=== PATIENT | female | born 1975 | race Caucasian/White ===

== ENCOUNTER → 2023-11-18 10:41 | Outpatient (REF) | payer MEDICARE, OTHER, SELFPAY ==
[2023-11-18 12:18] LABS: ALT (SGPT) 21 U/L (0-35); AST (SGOT) 36 U/L (14-36); Albumin 4.1 g/dl (3.5-5.0); Alkaline Phosphatase 146 U/L (38-126); Blood Urea Nitrogen 15 mg/dl (7-17); Calcium 9.5 mg/dl (8.4-10.2); Carbon Dioxide 25 mmol/L (22-30); Chloride 103 mmol/L (98-107); Glucose 166 mg/dl (70-99); Magnesium 1.9 mg/dl (1.6-2.3); Potassium 4.4 mmol/L (3.5-5.1); Sodium 140 mmol/L (135-145); Total Bilirubin 0.9 mg/dl (0.2-1.3); Total Protein 7.5 g/dl (6.3-8.2); eGFR > 60.00
[2023-11-20 18:16] LABS: Chromogranin A 111 ng/mL (0-187)
== END ==
LOC: REG 10:41
PROVIDERS: ATTENDING PHYSICIAN Internal Medicine Hematology & Oncology; FAMILY PHYSICIAN Physician Assistant Medical; REFERRING PHYSICIAN Nurse Practitioner Family
DX: C7A.00 Malignant carcinoid tumor of unspecified site (principal); C7A.092 Malignant carcinoid tumor of the stomach
CPT/HCPCS: 36415; 80053; 83735; 86316

== ENCOUNTER → 2023-12-27 10:44 | Outpatient (REF) | payer MEDICARE, OTHER, SELFPAY ==
[2023-12-27 11:01] VITALS: BP 121/58; BP_SYST 77
[2023-12-27 11:51] LABS: Glucose - Point of Care 230 mg/dl (70-99)
[2023-12-27 12:42] VITALS: BP 119/58; BP_SYST 72
[2023-12-27 13:43] LABS: Blood Urea Nitrogen 16 mg/dl (7-17); Calcium 10.2 mg/dl (8.4-10.2); Carbon Dioxide 24 mmol/L (22-30); Chloride 105 mmol/L (98-107); Glucose 192 mg/dl (70-99); Potassium 4.3 mmol/L (3.5-5.1); Sodium 137 mmol/L (135-145); eGFR > 60.00
[2023-12-27 14:16] LABS: AFP Male/Tumor Marker 10.6 ng/ml
== END ==
LOC: RADI 10:44
PROVIDERS: ATTENDING PHYSICIAN Internal Medicine Hematology & Oncology; FAMILY PHYSICIAN Physician Assistant Medical; REFERRING PHYSICIAN Internal Medicine Gastroenterology
DX: R59.0 Localized enlarged lymph nodes (principal); Z85.020 Personal history of malignant carcinoid tumor of stomach
CPT/HCPCS: 88173; 36415; 38505; 76942; 80048; 82105; 82962

== ENCOUNTER 2024-01-28 10:28 | Inpatient (IN) | payer OTHER, SELFPAY ==
[2024-01-26 18:56] VITALS: BP 114/56
[2024-01-26 19:43] LABS: % Basophils 0.7 % (0-2); % Eosinophils 1.2 % (0-6); % Immature Granulocytes 0.5 % (0-0.5); % Lymphocytes 39.5 % (20.5-51.1); % Monocytes 8.1 % (1.7-9.3); Absolute Basophils 0.1 10^3/uL (0-0.2); Absolute Eosinophils 0.1 10^3/uL (0-0.7); Absolute Immature Granulocytes 0.1 10^3/uL (0-0.05); Absolute Lymphocytes 4.1 10^3/uL (1.2-3.4); Absolute Monocytes 0.8 10^3/uL (0.1-0.6); Absolute Neutrophils 5.2 10^3/uL (1.4-6.5); Hematocrit 33.3 % (37.0-47.0); Hemoglobin 11.7 g/dL (12.0-16.0); Mean Corp Hgb Conc. 35.1 g/dL (33.0-37.0); Mean Corpuscular Hgb 32.7 pg (27.0-31.0); Mean Platelet Volume 9.6 fL (7.4-10.4); Nucleated Red Blood Cells % 0 %; Platelet Count 226 10^3/uL (130-400); Red Blood Cell Count 3.58 10^6/uL (4.20-5.40); Red Cell Dist. Width 13.8 % (11.5-14.5); White Blood Cell Count 10.4 10^3/uL (4.8-10.8)
[2024-01-26 19:57] LABS: HCG, Serum Qualitative Screen Negative
[2024-01-26 19:59] LABS: ALT (SGPT) 28 U/L (0-35); AST (SGOT) 39 U/L (14-36); Albumin 4.4 g/dl (3.5-5.0); Alkaline Phosphatase 163 U/L (38-126); Blood Urea Nitrogen 49 mg/dl (7-17); Calcium 9.2 mg/dl (8.4-10.2); Carbon Dioxide 21 mmol/L (22-30); Chloride 102 mmol/L (98-107); Glucose 119 mg/dl (70-99); Potassium 4.3 mmol/L (3.5-5.1); Sodium 139 mmol/L (135-145); Total Bilirubin 0.7 mg/dl (0.2-1.3); Total Protein 8.3 g/dl (6.3-8.2); eGFR 17.77
--- NOTE | 2024-01-26 20:14 | ED.GENMED ---
History of Present Illness
General
Chief Complaint: Extremity Pain (non-traumatic)
Source: patient
Exam Limitations: none
Time Seen by Provider: 01/26/24 19:56
Travel History
Have you had any contact with someone who has COVID-19?: No
Do you have any symptoms of coronavirus? Fever > 100 degrees, chills, cough, shortness of breath, sore throat, loss of taste or smell, muscle aches, or headache?: No
History of Present Illness
History of Present Illness:
See MDM
Past History
Past History
ED Past Medical History: GERD, HTN, Psychiatric (Anxiety, depression, OCD) and Other (sleep apneawears bipap)
ED Past Surgical History: Other (Surgery for the left eye muscle weakness)
Social History
Tobacco: Non-smoker
Alcohol: None
Drug: None
Personal: Single
Living: with family
Employment: Disabled
Family History
Family History: Other (No significant)
Phy Exam
Physical Exam
Physical Exam:
See MDM
Course
Orders/Labs/Results
Orders:
Orders
01/26/24 19:02
Test Result ONCE
01/26/24 19:09
CMP [Comprehensive Metabolic Panel] Urgent
Complete Blood Count/With Diff Urgent
HCG, Serum Qualitative Screen Urgent
01/26/24 20:13
Add On- LAB Urgent
Tests Added?: Magnesium level
NSS 1000mL Bolus over 1 hr 0.9% Sodium Chloride 1000 ml [Nss] 1,000 ml IV BOLUS
Abnormal Lab Results
01/26/24
19:09
RBC 3.58 L 10^6/uL
(4.20-5.40)
Hgb 11.7 L g/dL
(12.0-16.0)
Hct 33.3 L %
(37.0-47.0)
MCH 32.7 H pg
(27.0-31.0)
Abs Immat Gran (auto) 0.1 H 10^3/uL
(0-0.05)
Absolute Lymphs (auto) 4.1 H 10^3/uL
(1.2-3.4)
Absolute Monos (auto) 0.8 H 10^3/uL
(0.1-0.6)
Carbon Dioxide 21 L mmol/L
(22-30)
BUN 49 H mg/dl
(7-17)
Creatinine 3.1 H mg/dL
(0.6-1.0)
Glucose 119 H mg/dl
(70-99)
AST 39 H U/L
(14-36)
Alkaline Phosphatase 163 H U/L
(38-126)
Total Protein 8.3 H g/dl
(6.3-8.2)
01/26/24 19:09
01/26/24 19:09
Vital Signs
Initial and Last Documented VS:
Initial Vital Signs
Temp Pulse Resp BP Pulse Ox
98.2 F 74 22 114/56 100
01/26/24 18:56 01/26/24 18:56 01/26/24 18:56 01/26/24 18:56 01/26/24 18:56
Last Documented Vital Signs
Temp Pulse Resp BP Pulse Ox
98.2 F 78 22 114/56 98
01/26/24 18:56 01/26/24 19:57 01/26/24 18:56 01/26/24 18:56 01/26/24 19:57
MDM/Problems Addressed
Differential Diagnosis Includes:
HPI and MDM Narrative:
49-year-old female presenting for evaluation of bilateral foot tingling and numbness. Patient believes this all started today. [facility]. She has cognitive impairment and multiple medical comorbidities. Her mother is at
bedside. Patient is unsure if symptoms are improving. On exam, she does have mild decrease sensation to both feet. Patellar reflexes are intact. She does appear mildly dry to me. She does admit to not drinking much water
I had a long discussion with patient and mother in regards to differential diagnosis. We discussed metabolic abnormalities versus early Guillain-Thomas� versus diabetic neuropathy versus sleeping in recliner's
Physical exam
General: Well appearing and non-toxic
HEENT: protecting airway. Dry mucous membranes
Neck: appears supple
CV: No evidence of cyanosis
Resp: No accessory muscle use
Abd: Non-distended
Extremities: Mild sensory deficit to both feet. Pulses grossly intact. Muscle strength intact
Neuro: alert. Patellar reflexes +2
Psych: Normal affect
Skin: Intact
Problems Addressed including Acute and Chronic Conditions affecting care:
1. Bilateral foot paresthesias
Acuity: acute
Prognosis: stable
Details: Appears to be the source of her frequent falls. Very mild decrease sensation from ankles down. Distal pulses intact. Range of motion
2. Acute kidney injury
Acuity: acute
Prognosis: stable
Details: Likely in setting of dehydration. Will give IV fluids
Updates
Given the MARNIE which is likely prerenal or medication related, will give IV fluids and admit
Differential Diagnosis (but not limited to): Paresthesias, metabolic abnormalities, early Guillain-Thomas� syndrome, diabetic neuropathy
Testing considered: Renal ultrasound
Drug therapy (if applicable): OTC meds, please see d/c instruction regarding Rx drugs
Amount and/or Complexity of Data Reviewed
Clinical info obtained from: Patient and mother
External data reviewed: N/A
Labs I independently reviewed (but not limited to): Elevated creatinine
Radiology: N/A
Pulse Ox: not hypoxic
EKG independently reviewed: N/A
Cruise Agent: N/A
Critical Care: N/A
Risk of Complication:
Social Determinants of health: Good social support
Discussed with other providers: Hospitalist
Escalation of Care includes Admit/Obs: Given the elevated creatinine with active paresthesias, will give IV fluids and admit
Occasional wrong word or 'sound a like' substitutions may have occurred due to the inherent limitations of voice recognition software. Read the chart carefully and recognize, using context, where substitutions have occurred.
*Critical Care Note
Total Time (30-74mins, 75-104mins- exclusive of procedures): Not Applicable
ED Attending Note
-
Portions of this chart may have been created with voice recognition software.� Occasional wrong word or��sound alike� substitutions may have occurred due to the inherent limitations of voice recognition software.
Discharge Plan
Departure
Patient Disposition: Admit
Date of Disposition: 01/26/24
Time of Disposition: 20:25
Admit to: Med/Surg
Presentation/result/management discussed w/ accepting MD/DO: Hospitalist
Discharge Problem:
MARNIE (acute kidney injury), Paresthesia of both feet
Prescriptions:
No Action
fluoxetine 40 mg Capsule
40 mg PO DAILY
atenolol 100 mg Tablet
100 mg PO DAILY
famotidine 40 mg Tablet
40 mg PO DAILY
clonazepam [Klonopin] 1 mg Tablet
1 mg PO TID
omeprazole 40 mg Capsule,Delayed Release(Dr/Ec)
40 mg PO DAILY
quetiapine 100 mg Tablet
100 mg PO HS
ferrous sulfate 325 mg (65 mg iron) Tablet
325 mg PO BID
gabapentin 300 mg Capsule
300 mg PO BID
olmesartan 40 mg Tablet
40 mg PO DAILY
rosuvastatin 5 mg Tablet
5 mg PO DAILY
fenofibrate nanocrystallized 145 mg Tablet
145 mg PO DAILY
cholecalciferol (vitamin D3) [Vitamin D3] 50 mcg (2,000 unit) Tablet
50 mcg PO DAILY
insulin aspart U-100 [Novolog FlexPen U-100 Insulin] 100 unit/mL (3 mL) Insulin Pen
20 unit SC TID
insulin glargine [Lantus Solostar U-100 Insulin] 100 unit/mL (3 mL) Insulin Pen
40 unit SC HS
ibuprofen [Advil] 200 mg Tablet
400 mg PO Q8H PRN (Reason: pain)
hydroxyzine pamoate 25 mg Capsule
25 mg PO BID PRN (Reason: anxiety)
acetaminophen [Tylenol] 325 mg Tablet
325 mg PO ONCE PRN (Reason: pain)
Icy Hot Cream
1 applic TOPICAL DAILY PRN (Reason: pain)
Interventions
Interventions:
*Risk Screen - Suicide Last Done: 01/26/24 18:56
*General Assessment Last Done: 01/26/24 19:27
*Neglect/Abuse Screening Last Done: 01/26/24 18:56
*ED COVID-19 Vaccine History Last Done: 01/26/24 19:27
ED-Skin Assessment Last Done: 01/26/24 19:27
ED-Musculoskeletal Assessment Last Done: 01/26/24 19:27
Discharge Date and Time
Print Language: UKRAINIAN
[2024-01-26 20:21] VITALS: BP 115/58
[2024-01-26] MEDS: NSS 1000 IV ×2 (20:21→22:56)
[2024-01-26 20:31] LABS: Magnesium 2.4 mg/dl (1.6-2.3)
--- NOTE | 2024-01-26 21:23 | HPS.HSE ---
Family Physician
-
Family Physician: Tre Ziegler
Chief Complaint
-
Bilateral lower extremity numbness
History of Present Illness
This is a 49-year-old female with past medical history significant for neuroendocrine tumor status postresection and chemo with recent evidence of recurrence of metastatic disease, history of diabetes on insulin, YU, obesity, hypertension and
hyperlipidemia as well as LESLY who presents to the emergency department with acute onset of bilateral lower extremity numbness upon arousal today.
Patient apparently had been in usual state of health up until arousable today. She noted numbness in her feet bilaterally. She thought that this will improve over time as it had previously but Saturday day the symptoms persisted. He had difficulty
walking and actually had multiple falls during the day. Denies hitting her head. Patient denies any pain tingling or weakness. She does report that legs feels a little bit heavy. She denies any rash. She denies any changes to her medications.
On arrival in the emergency department patient is noted to have MARNIE with a creatinine going from 0.7-3.1 over episode of about 1 month. Patient reports that in the past she was on NSAIDs but this has been discontinued and adamantly denies taking
NSAID any NSAIDs. She has not had any exposures to contrast recently. Denies any other medication changes. Specifically noted that she has been urinating normally denies any difficulty urinating, abdominal distention or abdominal pain, flank pain
nausea or vomiting. She reports normal p.o. intake. Denies any significant sneezing diarrhea. Patient does have a history of loose bowel movements and has been on Imodium as needed but recently denies significant stool losses. She denies any new
rash.
In the ED the patient was afebrile, hemodynamically stable with a blood pressure 115/58 pulse of 78 oxygen saturation was 90% on room air. CBC was unremarkable with a white count of 10 hemoglobin of 11 and platelet count of 226. Chemistries were
mostly unremarkable except for a BUN of 49 and a creatinine of 3.1. LFTs unchanged.
Medical History
Past Medical History
Past Medical History: Reports Cancer (neuroendocrine tumor), HTN and IDDM
Additional Past Medical History:
LESLY
YU
Past Surgical History: Reports None
Social History
Tobacco: Non-smoker
Alcohol: None
Drug: None
Personal: Single
Living: Assisted Living
Employment: Not Employed
Family History
Family History: Not pertinent
Allergies / Home Medications
Allergies reflects when Allergies were last updated in [facility].
Home Medications with original date entered in [facility]
Allergy/Medication List:
Allergies
Allergy/AdvReac Type Severity Reaction Status Date / Time
Milk Containing Products Allergy Unknown Verified 12/27/23 10:57
(Dairy)
[Milk Containing Products]
prednisone Allergy Unknown Verified 01/26/24 19:02
Home Medications
acetaminophen 325 mg tablet (Tylenol) 325 mg PO ONCE PRN pain 11/22/22
atenolol 100 mg tablet 100 mg PO DAILY 11/22/22
cholecalciferol (vitamin D3) 50 mcg (2,000 unit) tablet (Vitamin D3) 50 mcg PO DAILY 11/22/22
clonazepam 1 mg tablet (Klonopin) 1 mg PO TID 11/22/22
famotidine 40 mg tablet 40 mg PO DAILY 11/22/22
fenofibrate nanocrystallized 145 mg tablet 145 mg PO DAILY 11/22/22
ferrous sulfate 325 mg (65 mg iron) tablet 325 mg PO BID 11/22/22
fluoxetine 40 mg capsule 40 mg PO DAILY 11/22/22
gabapentin 300 mg capsule 300 mg PO BID 11/22/22
hydroxyzine pamoate 25 mg capsule 25 mg PO BID PRN anxiety 11/22/22
ibuprofen 200 mg tablet (Advil) 400 mg PO Q8H PRN pain 11/22/22
insulin aspart U-100 100 unit/mL (3 mL) subcutaneous pen (Novolog FlexPen U-100 Insulin aspart) 20 unit SC TID 11/22/22
insulin glargine 100 unit/mL (3 mL) subcutaneous pen (Lantus Solostar U-100 Insulin) 40 unit SC HS 11/22/22
methyl salicylate-menthol topical cream 1 applic topical DAILY PRN pain 11/22/22
olmesartan 40 mg tablet 40 mg PO DAILY 11/22/22
omeprazole 40 mg capsule,delayed release 40 mg PO DAILY 11/22/22
quetiapine 100 mg tablet 100 mg PO HS 11/22/22
rosuvastatin 5 mg tablet 5 mg PO DAILY 11/22/22
Review of Systems
-
History Source: Patient and Family
Constitutional: Reports No Symptoms
EENT: Reports No Symptoms
Respiratory: Reports No Symptoms
Cardiac: Reports No Symptoms
Abdomen/GI: Reports No Symptoms
: Reports No Symptoms
Musculoskeletal: Reports No Symptoms
Skin: Reports No Symptoms
Neurological: Reports Numbness
Endocrine: Reports No Symptoms
Hematologic/Lymphatic: Reports No Symptoms
Psych: Reports No Symptoms
Physical Exam
Vital Signs
Vital Signs
Temp Pulse Resp BP Pulse Ox
98.2 F 78 22 115/58 98
01/26/24 18:56 01/26/24 19:57 01/26/24 18:56 01/26/24 20:21 01/26/24 19:57
Physical Exam
General: Well Developed, No Apparent Distress and Comfortable
HEENT: NormoCephalic, Moist mucous membranes, Atraumatic, PERRLA and Neck Nontender
Respiratory: Clear
Cardiac: S1/S2 and Regular Rhythm
Breast: Deferred by me
GI: Soft, Non Tender and Normal Bowel Sounds
Genito-urinary: Deferred by me
Musculoskeletal: No Clubbing, No Cyanosis and No Edema
Skin: Warm and Rash (facial rash - chronic and unchanged per patient. )
Neuro: AO x 3
Hematologic/Lymphatic: No Lymphadenopathy
Psych: Calm
Laboratory Results
-
01/26/24 19:09
01/26/24 19:09
Laboratory Results
Total Bilirubin 0.7 mg/dl (0.2-1.3) 01/26/24 19:09
AST 39 U/L (14-36) H 01/26/24 19:09
ALT 28 U/L (0-35) 01/26/24 19:09
Alkaline Phosphatase 163 U/L (38-126) H 01/26/24 19:09
Data Reviewed
-
Lab Data: Labs Reviewed by me
Old Records: Reviewed
Impression/Plan
-
IMPRESSION:
PLAN:
1. MARNIE - Unclear etiology of MARNIE. Cr 3.1 from baseline of 0.7 last month. Denies NSAIDs. No other exposures. No infectious process. No rash. Has been hemodynamically stable. No history suggestive of significant dehydration. No obvious
obstruction patient however unable to provide urine while in ED. B/S = 650 ml. Urinary catheter inserted with 400 ml removed immediately c/w possible retention and hydro
- admit to [facility]
- Kidney/bladder us in am
- u/a, urine protein and lytes
- cpk, serologies (MAULIK, C3/C4, ESR, CRP,) to start
- strict i/os
- 1 L NS in ED, monitor afterwards.
- holding ARB, renal dose meds
- nephrology consultation
2. Bilateral Feet numbness - Acute onset of numbness on the soles of the feet. No weakness. No other focal deficit. No rash. Onset atypical for diabetic neuropathy. Possibly paraneuoplastic vs inflammatory polyneuropathy. No back pain.
- check b12, tsh, RF and above serologies
- neurology consult
3. DM II
- lantus 40 hs
- aspart 15 tid ac
- moderate sliding scale
4. LESLY
- oxygen prn hs
DVT PPX - heparin sq
Full Code
[2024-01-26 22:31] VITALS: BP 140/66
[2024-01-26 22:32] LABS: Urine Albumin Negative (Neg - Trace); Urine Bilirubin Negative (Negative); Urine Character Clear (Clear); Urine Color Yellow; Urine Glucose Trace (Negative); Urine Ketone Negative (Negative); Urine Leukocyte Negative (Negative); Urine Nitrite Negative (Negative); Urine Occult Blood Negative (Negative); Urine Specific Gravity 1.015 (<1.030); Urine Urobilinogen Negative (Neg - 1+)
[2024-01-26 22:50] VITALS: BP 145/72; BMI 34.1
[2024-01-26] MEDS: SEROQUEL 100 MG PO (22:56)
[2024-01-26] MEDS: KLONOPIN 1 MG PO (22:56)
[2024-01-26 23:00] VITALS: BP 145/72
--- NOTE | 2024-01-26 23:00 | PTCARENOTE ---
pt arrived from ed, pulled over from stretcher. aaox3, VSS, janeth placed in ED. see MAR and assessment for further details. call carrillo within reach.
[2024-01-26 23:06] LABS: Glucose - Point of Care 198 mg/dl (70-99)
[2024-01-26] MEDS: HEPARIN 5000 UNITS SC (23:11)
[2024-01-26 23:14] LABS: Protein/creatinine Ratio 0.3; Urine Protein 29 mg/dl; Urine Sodium 75 mmol/L (30-90)
[2024-01-27] MEDS: TUMS 2 TABLET PO (02:31)
[2024-01-27] MEDS: TYLENOL 650 MG PO ×3 (04:39→17:22)
[2024-01-27 06:35] LABS: Hematocrit 35.7 % (37.0-47.0); Hemoglobin 12.4 g/dL (12.0-16.0); Mean Corp Hgb Conc. 34.7 g/dL (33.0-37.0); Mean Corpuscular Hgb 32.8 pg (27.0-31.0); Mean Corpuscular Volume 94.4 fL (81.0-99.0); Mean Platelet Volume 9.8 fL (7.4-10.4); Platelet Count 193 10^3/uL (130-400); Red Blood Cell Count 3.78 10^6/uL (4.20-5.40); Red Cell Dist. Width 13.4 % (11.5-14.5); White Blood Cell Count 8.3 10^3/uL (4.8-10.8)
[2024-01-27 06:48] LABS: Blood Urea Nitrogen 43 mg/dl (7-17); Calcium 8.9 mg/dl (8.4-10.2); Carbon Dioxide 17 mmol/L (22-30); Chloride 106 mmol/L (98-107); Estimated Creatinine Clearance 35 ml/min; Glucose 167 mg/dl (70-99); Sodium 139 mmol/L (135-145); eGFR 26.81
[2024-01-27 06:55] LABS: Complement C3 159 mg/dl (88-165)
[2024-01-27 07:15] VITALS: BP 141/63
[2024-01-27 07:49] LABS: Glucose - Point of Care 207 mg/dl (70-99)
--- NOTE | 2024-01-27 08:03 | CON.NEURO4 ---
Addendum entered and electronically signed by Chuy Alvarez MD 01/27/24 13:26:
I saw and evaluate the patient reviewed note by Margaret Arambula agree the findings the following comments:
49-year-old woman with a past no history of obesity, diabetes, obstructive sleep apnea, neuroendocrine tumor with metastases presenting the hospital with bilateral foot paresthesia and walking difficulty with a couple falls. She was also found to
have an MARNIE with creatinine to maximum of 3.1, and recently had fever to 101.3.
Patient recollects that she has had this for around 6 years, most recent hemoglobin A1c was 7.4, highest was 11.5 in January 2021. She does recollect having some degree of kidney abnormalities but does not think that she has had retinal abnormalities
from diabetes.
She does recollect that she has had some degree of paresthesia of the feet in the past not sure how far that this goes. She denies any paresthesia in the saddle region no back pain or neck and no radiating pain from the back to the legs. No recent
trauma to the back or neck before more recent falls.
Neurologic examination shows psychomotor slowing and difficulty with complex aspects of history, no aphasia no neglect, cranial nerves II through XII normal
Motor examination shows normal bulk and tone
Arm flexion 5/5 bilateral
Hip flexion 5/5 bilaterally hip abduction/adduction ankle dorsiflexion/plantarflexion is 5/5 bilaterally and toe extension 5/5 bilaterally.
Mildly diminished to vibratory sense distally in the feet normal to pinprick and light touch
Absent Achilles reflexes present patella biceps triceps brachioradialis
Assessment:
I suspect patient has worsening of chronic diabetic peripheral neuropathy leading to more noticeable paresthesia and falls due to metabolic derangements of MARNIE and possible infection given fever to 101 today. Urinary retention is new and patient
does have a history of neuroendocrine cancer which would broaden our differential diagnosis.
She is not showing signs or symptoms highly suggestive of spinal cord dysfunction, no weakness in the lower extremities no radicular pain, no saddle anesthesia.
Clinical context of likely a baseline diabetic peripheral neuropathy, acute illness with metabolic derangements along with presence of patellar and upper extremity reflexes I feel makes Guillain-Thomas� unlikely.
Recommendations
-Follow clinical course and if she shows any worsening ascending paresthesias or weakness can consider further workup
-Check MRI of the lumbar and thoracic spine without contrast given history of malignancy
-Do not feel the EMG would be helpful at this time
-Check for reversible causes of peripheral neuropathy vitamin B12 TSH, hemoglobin A1c
-Workup fever
Original Note:
Consultation - Neurology 4
-
CONSULTING PHYSICIAN: Raúl Alvarez MD
REFERRING PHYSICIAN: Hospitalists/Dr. Merchant
DICTATED BY: MELI Cole
DATE/TIME OF REQUEST: 01/26/24
DATE/TIME OF CONSULTATION: 01/27/24
Reason for Consultation: B/L foot numbness, urinary retention
History of Present Illness:
This is a 49-year-old female who has presented to the hospital on 01/26/24 with report of bilateral foot numbness and frequent falls. Patient reports that she woke up in the morning yesterday (01/26/24) and her feet felt like 'Jello.' She proceeded to
have two falls throughout the day due to not being able to feel her feet, prompting her to be sent to the ER for evaluation. Creatinine on arrival 3.1, GFR 17, CRP 83.7, ESR 63, alk phos 163. Patient was unable to urinate and bladder scan
demonstrated 650ml, Fowler catheter was inserted. This morning (01/27/24) patient has a temperature of 101.3 oral. Patient reports generally not feeling well and that she is nervous. She denies any headache, dizziness, vision changes, speech/swallow
difficultly, weakness, nausea, chest pain, palpitations, and shortness of breath. Her feet still feel numb. She denies any back or neck pain. She reports having intermittent diarrhea for several months, she was incontinent of stool yesterday. She
reports also having a pnuemonia vaccine and was treated for a sinus infection about one week ago. She reports having mild intermittent tingling in her feet in the past but never to this extent.
Past Medical History: Neuroendocrine tumor s/p rxn and chemo with recent metastatic disease, NIDDM requiring insulin, HTN, HLD, YU, LESLY (cpap), pulmonary nodules, GERD, developmental delay, anxiety, depression obesity, iron deficiency anemia,
vitamin D deficiency
Surgical History: Liver biopsy, eye muscle surgery, oral surgery
Family History: Mother- CVA in her 70's
Social History: Denies tobacco, alcohol, and illicit drug use.
Allergies: Mild, prednisone.
Home Medications: See below.
Review of Symptoms:
Patient denies any fever, headache, chest pain, shortness of breath, GI or symptoms.
�Per the HPI.�All systems are reviewed negative except above.
Physical Exam:
The patient is febrile, face is flushed, skin is hot to touch. Breathing is unlabored, abdomen is nondistended, no edema, fowler catheter in place.
Neurologic Examination:
The patient is awake, alert and oriented x 3. She is able to follow commands and answer questions appropriately. There is no aphasia or dysarthria but verbal responses are very delayed. On cranial nerve assessment, pupils are 3 mm bilateral, round
and reactive to light and accommodation. Visual rios are full. Extraocular movements are intact. Facial sensations are intact and bilaterally symmetrical, there is no facial asymmetry. Hearing is intact bilaterally to normal conversation volume.
Tongue palate and uvula are midline. Sternocleidomastoid strengths are full bilaterally. Motor strengths are 5-/5 bilateral upper and lower extremities on medical research [place] scale. B/L plantar/dorsiflexion and knee adduction/abduction 5/5.
There is no drift or involuntary movement noted. Deep tendon reflexes are 1+ bilateral upper and bilateral patellar, absent bilateral Achilles, and Babinski is absent bilaterally. Sensations of touch and pain are mildly reduced in bilateral feet
only. Temperature and vibration are intact and bilaterally symmetrical. Coordination is intact by finger to nose bilaterally.
Lab Results: See below.
Neuro Imaging: None.
Differentials for the patient's presentation include:
1. Likely an exacerbation of chronic neuropathy symptoms in the setting of long-standing diabetes, MARNIE, and infection.
2. Guillain-[place] syndrome possible but less likely given absence of pain and saddle paresthesia.
3. Need to rule-out lumbar spinal cord abnormality producing symptoms.
Patient has the following risk factors for their symptoms: NIDDM requiring insulin, infection, MARNIE, cancer
Recommendations:
-Urgent lumbar spine MRI noncontrast pending.
-Infectious workup/treatment per primary team.
-Consider EMG in 1-2 weeks especially if symptoms progress.
-Goal normoglycemia, hbA1c is 7.4.
-B12 level is low at 345. Initiate cyanocobalamin 1000mcg daily.
-Neurological checks per unit guidelines.
-DVT prophylaxis.
-Will follow.
Discussed patient care with: Dr. Alvarez, the patient
Vital Signs and Labs
-
Vital Signs and Labs:
Vital Signs
Temp Pulse Resp BP Pulse Ox
99.5 F 91 18 120/58 93
01/27/24 12:25 01/27/24 12:25 01/27/24 12:25 01/27/24 12:25 01/27/24 12:25
Lab Results
01/27/24 05:19
01/27/24 05:20
Sodium 139 mmol/L (135-145) 01/27/24 05:20
Potassium 4.0 mmol/L (3.5-5.1) 01/27/24 05:20
BUN 43 mg/dl (7-17) H 01/27/24 05:20
Glucose 167 mg/dl (70-99) H 01/27/24 05:20
Calcium 8.9 mg/dl (8.4-10.2) 01/27/24 05:20
Vitamin B12 345 pg/ml (239-931) 01/27/24 05:20
Medications
-
Active Medications
Generic Name Dose Route Start Last Admin
Trade Name Freq PRN Reason Stop Dose Admin
Acetaminophen 650 mg 01/26/24 22:36 01/27/24 10:02
Acetaminophen 325 Mg Tablet PO 02/23/24 22:35 650 mg
Q4HPRN PRN Administration
mild pain/ELENA/temp> 100.4F
Atenolol 100 mg 01/27/24 08:00 01/27/24 10:01
Atenolol 50 Mg Tablet PO 02/24/24 07:59 100 mg
DAILY ALURA Administration
Bisacodyl 10 mg 01/26/24 22:36
Bisacodyl 10 Mg Rectal Suppository RECTAL 02/23/24 22:35
[id number] PRN
constipation
Calcium Carbonate 2 tablet 01/27/24 02:23 01/27/24 02:31
Calcium Carbonate 500 Mg (Regular-Strength) Chew Tablet PO 02/24/24 02:22 2 tablet
Q4HPRN PRN Administration
indigestion
Ceftriaxone Sodium 1,000 mg 01/27/24 12:00 01/27/24 12:37
Ceftriaxone 1000 Mg / 10 Ml Vial IV 1,000 mg
Q24H LAURA Administration
Clonazepam 1 mg 01/26/24 22:00 01/27/24 10:01
Clonazepam 1 Mg Tablet PO 02/23/24 21:59 1 mg
TID LAURA Administration
Dextrose 12.5 grams 01/26/24 23:00
Dextrose 50% (0.5 Grams/Ml) 50 Ml Syringe IV 02/23/24 22:59
[id number] PRN
hypoglycemia
Protocol
Famotidine 20 mg 01/27/24 08:00 01/27/24 10:25
Famotidine 20 Mg Tablet PO 02/24/24 07:59 20 mg
Q48H LAURA Administration
Ferrous Sulfate 325 mg 01/27/24 08:00 01/27/24 10:01
Ferrous Sulfate 325 Mg Tablet PO 02/24/24 07:59 325 mg
BID LAURA Administration
Fluoxetine HCl 40 mg 01/27/24 08:00 01/27/24 10:42
Fluoxetine 20 Mg Capsule PO 02/24/24 07:59 40 mg
DAILY LAURA Administration
Gabapentin 100 mg 01/27/24 08:00 01/27/24 10:01
Gabapentin 100 Mg Capsule PO 02/24/24 07:59 100 mg
DAILY LAURA Administration
Glucagon 1 mg 01/26/24 23:00
Glucagon 1 Mg Vial IM 02/23/24 22:59
PRN PRN
hypoglycemia - no IV access
Protocol
Heparin Sodium 5,000 units 01/27/24 00:00 01/27/24 10:02
Heparin 5,000 Units/Ml 1 Ml Vial SC 02/24/24 00:00 5,000 units
Q8 LAURA Administration
Sodium Chloride 1,000 mls @ 100 mls/hr 01/26/24 22:36 01/27/24 10:02
Nss IV 1,000 mls
.Q10H LAURA Administration
Insulin Aspart 0 units 01/27/24 07:30 01/27/24 12:31
Insulin Aspart Moderate Resistance 300 Units/3 Ml Pen.Injctr SC 02/24/24 07:29 Not Given
AC LAURA
Protocol
Ondansetron HCl 4 mg 01/26/24 22:36
Ondansetron 4 Mg/2 Ml Vial IV 02/23/24 22:35
Q6HPRN PRN
nausea and vomiting
Polyethylene Glycol 17 grams 01/26/24 22:36
Polyethylene Glycol Powder 17 Grams Packet PO 02/23/24 22:35
DAILYPRN PRN
constipation
Quetiapine Fumarate 100 mg 01/26/24 22:00 01/26/24 22:56
Quetiapine 100 Mg Tablet PO 02/23/24 21:59 100 mg
HS LAURA Administration
Rosuvastatin Calcium 5 mg 01/27/24 08:00 01/27/24 10:01
Rosuvastatin (Crestor) 5 Mg Tablet PO 02/24/24 07:59 5 mg
DAILY LAURA Administration
Senna/Docusate Sodium 1 tablet 01/26/24 22:36
Docusate W/Senna (Destini-Colace) Tablet PO 02/23/24 22:35
BIDPRN PRN
constipation
Sodium Chloride 0 flush 01/26/24 22:00
Sodium Chloride 0.9% (Flush) Syringe IV 02/23/24 21:59
PER PROTOCOL LAURA
Home Medications
�Medication �Instructions �Recorded
acetaminophen 325 mg tablet 325 mg PO ONCE PRN pain 11/22/22
(Tylenol)
atenolol 100 mg tablet 100 mg PO DAILY 11/22/22
cholecalciferol (vitamin D3) 50 50 mcg PO DAILY 11/22/22
mcg (2,000 unit) tablet (Vitamin
D3)
clonazepam 1 mg tablet (Klonopin) 1 mg PO TID 11/22/22
famotidine 40 mg tablet 40 mg PO DAILY 11/22/22
fenofibrate nanocrystallized 145 145 mg PO DAILY 11/22/22
mg tablet
ferrous sulfate 325 mg (65 mg 325 mg PO BID 11/22/22
iron) tablet
fluoxetine 40 mg capsule 40 mg PO DAILY 11/22/22
gabapentin 300 mg capsule 300 mg PO BID 11/22/22
hydroxyzine pamoate 25 mg capsule 25 mg PO BID PRN anxiety 11/22/22
ibuprofen 200 mg tablet (Advil) 400 mg PO Q8H PRN pain 11/22/22
insulin aspart U-100 100 unit/mL 20 unit SC TID 11/22/22
(3 mL) subcutaneous pen (Novolog
FlexPen U-100 Insulin aspart)
insulin glargine 100 unit/mL (3 40 unit SC HS 11/22/22
mL) subcutaneous pen (Lantus
Solostar U-100 Insulin)
methyl salicylate-menthol topical 1 applic topical DAILY PRN pain 11/22/22
cream
olmesartan 40 mg tablet 40 mg PO DAILY 11/22/22
omeprazole 40 mg capsule,delayed 40 mg PO DAILY 11/22/22
release
quetiapine 100 mg tablet 100 mg PO HS 11/22/22
rosuvastatin 5 mg tablet 5 mg PO DAILY 11/22/22
[2024-01-27 08:07] LABS: Creatine Phosphokinase 138 U/L (30-135)
[2024-01-27 08:20] LABS: Erythrocyte Sed Rate 63 mm/hour (0-20)
[2024-01-27] MEDS: FEOSOL 325 MG PO ×2 (10:01→19:55)
[2024-01-27] MEDS: TENORMIN 100 MG PO (10:01)
[2024-01-27] MEDS: NEURONTIN 100 MG PO (10:01)
[2024-01-27] MEDS: KLONOPIN 1 MG PO ×3 (10:01→21:27)
[2024-01-27] MEDS: CRESTOR 5 MG PO (10:01)
[2024-01-27] MEDS: NSS 1000 IV ×2 (10:02→18:36)
[2024-01-27] MEDS: HEPARIN 5000 UNITS SC ×3 (10:02→23:09)
[2024-01-27] MEDS: NOVOLOG FLEXPEN-MODERATE RESISTANCE 3 UNITS SC (10:04)
[2024-01-27] MEDS: PEPCID 20 MG PO (10:25)
[2024-01-27] MEDS: PROZAC 40 MG PO (10:42)
--- NOTE | 2024-01-27 11:23 | W.CON.NEPH ---
Consultation
-
Date/Time Consultation Requested: 01/27/2024 7:00 AM
Date/Time Consultation Performed: 01/27/2024 1130
Requesting Provider: Kanu
Performing Provider: Dr. Russell
Reason for Consultation: MARNIE
Medical History
-
Chief Complaint: Acute kidney injury
History of Present Illness:
The patient is a 49-year-old female with a past medical history of diabetes maintained on insulin. She also has a history of dyslipidemia maintained on statin therapy. The patient has a history of hypertension maintained on olmesartan and
atenolol. She has a past medical history significant for neuroendocrine tumor status postresection and chemo with recent evidence of recurrence of metastatic disease. She has YU, obesity, hypertension and hyperlipidemia as well as LESLY who presents
to the emergency department with acute onset of bilateral lower extremity numbness upon arousal today.
Patient apparently had been in usual state of health up until arousable today. She noted numbness in her feet bilaterally. She thought that this will improve over time as it had previously but Saturday day the symptoms persisted. She had difficulty
walking and actually had multiple falls during the day. Denies hitting her head. Patient denies any pain tingling or weakness. She does report that legs feels a little bit heavy. She denies any rash. She denies any changes to her medications.
On arrival in the emergency department patient was noted to have MARNIE with a creatinine going from 0.7-3.1 over episode of about 1 month. Patient reports that in the past she was on NSAIDs but this has been discontinued and adamantly denies taking
any NSAIDs. She has not had any exposures to contrast recently. Denies any other medication changes. Specifically noted that she has been urinating normally denies any difficulty urinating, abdominal distention or abdominal pain, flank pain
nausea or vomiting. She reports normal p.o. intake. Denies any significant sneezing diarrhea. Patient does have a history of loose bowel movements and has been on Imodium as needed but recently denies significant stool losses. She denies any new
rash.
In the ED the patient was afebrile, hemodynamically stable with a blood pressure 115/58 pulse of 78 oxygen saturation was 90% on room air. CBC was unremarkable with a white count of 10 hemoglobin of 11 and platelet count of 226. Chemistries were
mostly unremarkable except for a BUN of 49 and a creatinine of 3.1. LFTs unchanged. Nephrology was consulted for acute kidney
Past Medical History
(Metastatic neuroendocrine tumor), HTN and IDDM
Muscular atonia
Anxiety
LESLY
YU
Social History
Tobacco: Non-Smoker
Alcohol: None
Family History
No chronic kidney disease
Allergies / Home Medications
Allergy/AdvReac Type Severity Reaction Status Date / Time
Milk Containing Products Allergy Unknown Verified 12/27/23 10:57
(Dairy)
[Milk Containing Products]
prednisone Allergy Unknown Verified 01/26/24 19:02
�Medication �Instructions �Recorded �Confirmed �Type
acetaminophen 325 mg tablet 325 mg PO ONCE PRN pain 11/22/22 12/27/23 History
(Tylenol)
atenolol 100 mg tablet 100 mg PO DAILY 11/22/22 12/27/23 History
cholecalciferol (vitamin D3) 50 50 mcg PO DAILY 11/22/22 12/27/23 History
mcg (2,000 unit) tablet (Vitamin
D3)
clonazepam 1 mg tablet (Klonopin) 1 mg PO TID 11/22/22 12/27/23 History
famotidine 40 mg tablet 40 mg PO DAILY 11/22/22 12/27/23 History
fenofibrate nanocrystallized 145 145 mg PO DAILY 11/22/22 12/27/23 History
mg tablet
ferrous sulfate 325 mg (65 mg 325 mg PO BID 11/22/22 12/27/23 History
iron) tablet
fluoxetine 40 mg capsule 40 mg PO DAILY 11/22/22 12/27/23 History
gabapentin 300 mg capsule 300 mg PO BID 11/22/22 12/27/23 History
hydroxyzine pamoate 25 mg capsule 25 mg PO BID PRN anxiety 11/22/22 12/27/23 History
ibuprofen 200 mg tablet (Advil) 400 mg PO Q8H PRN pain 11/22/22 12/27/23 History
insulin aspart U-100 100 unit/mL 20 unit SC TID 11/22/22 12/27/23 History
(3 mL) subcutaneous pen (Novolog
FlexPen U-100 Insulin aspart)
insulin glargine 100 unit/mL (3 40 unit SC HS 11/22/22 12/27/23 History
mL) subcutaneous pen (Lantus
Solostar U-100 Insulin)
methyl salicylate-menthol topical 1 applic topical DAILY PRN pain 11/22/22 12/27/23 History
cream
olmesartan 40 mg tablet 40 mg PO DAILY 11/22/22 12/27/23 History
omeprazole 40 mg capsule,delayed 40 mg PO DAILY 11/22/22 12/27/23 History
release
quetiapine 100 mg tablet 100 mg PO HS 11/22/22 12/27/23 History
rosuvastatin 5 mg tablet 5 mg PO DAILY 11/22/22 12/27/23 History
Review of Systems
-
History Source: Patient and Family
All other systems: Negative unless noted
Constitutional: Fever and Fatigue
EENT: No Symptoms
Respiratory: No Symptoms
Cardiac: No Symptoms
Abdomen/GI: No Symptoms
: Difficulty Voiding (Rivas placed on floor)
Musculoskeletal: Other (Chronic muscle)
Skin: No Symptoms
Neurological: Numbness (Of lower extremity)
Endocrine: No Symptoms
Hematologic/Lymphatic: No Symptoms
Physical Exam
Vital Signs
Vital Signs
Temp Pulse Resp BP Pulse Ox
101.3 F H 114 26 141/63 93
01/27/24 07:15 01/27/24 07:15 01/27/24 07:15 01/27/24 07:15 01/27/24 07:15
Lab Results
WBC 8.3 10^3/uL (4.8-10.8) 01/27/24 05:19
RBC 3.78 10^6/uL (4.20-5.40) L 01/27/24 05:19
Hgb 12.4 g/dL (12.0-16.0) 01/27/24 05:19
Hct 35.7 % (37.0-47.0) L 01/27/24 05:19
Plt Count 193 10^3/uL (130-400) 01/27/24 05:19
Sodium 139 mmol/L (135-145) 01/27/24 05:20
Potassium 4.0 mmol/L (3.5-5.1) 01/27/24 05:20
Chloride 106 mmol/L (98-107) 01/27/24 05:20
Carbon Dioxide 17 mmol/L (22-30) L 01/27/24 05:20
BUN 43 mg/dl (7-17) H 01/27/24 05:20
Creatinine 2.2 mg/dL (0.6-1.0) H 01/27/24 05:20
eGFR 26.81 01/27/24 05:20
Glucose 167 mg/dl (70-99) H 01/27/24 05:20
Calcium 8.9 mg/dl (8.4-10.2) 01/27/24 05:20
Albumin 4.4 g/dl (3.5-5.0) 01/26/24 19:09
Physical Exam
General: AOx3, Nontoxic , NAD
HEENT: PERRL, EOMI, Anicteric, Conjunctivae Clear, Ear/Nose Intact, Hearing Normal, Oropharynx Clear/Moist, Dentition Intact, Facial Symmetry, Neck Supple, Neck: Trachea Midline, No JVD and No Thyromegaly, no Bruits
Respiratory: Clear to auscultation bilaterally with normal lung excursion
Cardiac: S1/S2 and Regular Rate/Rhythm
Breast: Deferred by me
Abdomen: Soft, Nontender, Nondistended, Normal Bowel Sounds and No Hepatosplenomegaly
Rectal: Deferred by Provider
Genito-urinary: No Costovertebral Tenderness/indwelling catheter
Extremities: No Clubbing, No Cyanosis and No Edema
Skin: No Rash or open lesions, flushed face
Neuro: Nonfocal/Grossly Intact, CN II-XII (Intact) and Strength (Musculoskeletal exam 5 out of 5 both upper and lower extremities)
Hematologic/Lymphatic: No Cervical Lymphadenopathy, No Submandibular Lymphadenopathy and No Supraclavicular Lymphadenopathy
Psych: Mood/afflect flat Insight/judgement good and Appropriate
Vascular: plus 1 pedal and radial pulses
:
Data Reviewed
-
Radiology: Report Reviewed by me (Kidney and bladder ultrasound to be reviewed)
Labs: Labs Reviewed by me (CBC BMP urinalysis)
Old Records: Reviewed (Creatinine 0.7 from date December 27, 2023)
Assessment/Plan
-
Impression:
Acute kidney injury
Bilateral lower extremity numbness
Diabetes
Hypertension
Obstructive sleep apnea
Neuroendocrine tumor
Muscle atonia
Plan:
MARNIE:
-UA bland
-Fractional secretion of sodium not consistent with prerenal stimulus
-No obvious nephrotoxic insult, however patient was prescribed Cefdinifir late last week for sinusitis, follow-up urine eosinophils to assess for drug-induced interstitial nephritis
-Kidney and bladder ultrasound to be obtained, maintain Rivas catheter as urinary retention with bladder atonia could be contributing to kidney failure
-hold ARB in setting of acute kidney and
-Okay to maintain IV fluids another day
[2024-01-27 11:45] LABS: TSH Reflex To Free T4 0.77 uIU/ml (0.47-4.68)
[2024-01-27 12:04] LABS: Glycohemoglobin (HgbA1c) 7.4 % (4.0-5.6)
[2024-01-27 12:21] LABS: Vitamin B12 345 pg/ml (239-931)
[2024-01-27 12:22] LABS: Glucose - Point of Care 147 mg/dl (70-99)
[2024-01-27 12:25] VITALS: BP 120/58
[2024-01-27] MEDS: NOVOLOG FLEXPEN-MODERATE RESISTANCE SC ×2 (12:31→17:17)
[2024-01-27] MEDS: ROCEPHIN 1000 MG IV (12:37)
[2024-01-27 12:59] LABS: Urine Albumin Negative (Neg - Trace); Urine Bilirubin Negative (Negative); Urine Character Clear (Clear); Urine Color Yellow; Urine Glucose 2+ (Negative); Urine Ketone Negative (Negative); Urine Leukocyte 1+ (Negative); Urine Nitrite Negative (Negative); Urine Occult Blood 3+ (Negative); Urine Urobilinogen Negative (Neg - 1+)
[2024-01-27 13:56] LABS: Urine Red Blood Cell 0-2 /HPF (0-2)
[2024-01-27 13:59] LABS: Urine Uric Acid Crystals Seen
--- NOTE | 2024-01-27 14:02 | W.PN.HOSP.TC ---
Today's Communication/Plan
-
see A/P
Assessment / Plan
Assessment / Plan
HPI: 49-year-old female with past medical history significant for neuroendocrine tumor status post resection and chemo with recent evidence of recurrence of metastatic disease, history of diabetes on insulin, YU, obesity, hypertension and
hyperlipidemia as well as LESLY who presented to the emergency department with acute onset of bilateral lower extremity numbness upon arousal.
Patient apparently had been in usual state of health up until DOA. She noted numbness in her feet bilaterally. She thought that this will improve over time as it had previously but the symptoms persisted. She had difficulty walking and actually had
multiple falls during the day. Denies hitting her head. She reported that legs feels a little bit heavy. She denies any rash. She denies any changes to her medications.
On arrival in the emergency department patient is noted to have MARNIE with a creatinine at 3.1 from baseline 0.7. She has not had any exposures to contrast recently. Denies any other medication changes. Denied to difficulty with urination, abdominal
distention or abdominal pain, flank pain nausea or vomiting. She reported normal p.o. intake.
A/P:
# Prerenal MARNIE likely from dehydration
Cr 3.1 on admission -> 2.2, from baseline 0.7
Cont IVF
Rivas placed on admission due to elevated PVR, consider TOV prior to DC
Check Kidney/bladder US
UA unrevealing, follow urine eosinophil
Follow MAULIK
C3/C4 unrevealing
Renal consulted
# Fever, unclear etiology
Follow urine Cx, blood Cx
started empiric ceftriaxone
CRP elevated at 80
# Bilateral feet numbness- Acute onset of numbness started at the soles of feet. No weakness. [place] likely progression of diabetic neuropathy per neuro.
B12 level low normal, start empiric supplement
TSH 0.77
Check thoracic/lumbar MRI
Neuro consulted
# IDDM
Cont ANIMAL ANATOMIST Lantus and Aspart at reduced doses: Lantus at 20 from ANIMAL ANATOMIST 40 units HS; aspart at 15 units AC from ANIMAL ANATOMIST 30 units AC
Cover with moderate sliding scale
# LESLY
oxygen prn hs
DVT PPX - heparin sq
Full Code
DW mother at bedside
Anticipated Discharge: > 48 hours
Subjective/Interval History
-
Date of Service: January 27, 2024
Objective Data
-
Labs:
Laboratory Results
01/27/24 01/27/24
05:19 05:20
WBC 8.3
Hgb 12.4
Hct 35.7 L
Plt Count 193
Sodium 139
Potassium 4.0
Chloride 106
Carbon Dioxide 17 L
BUN 43 H
Creatinine 2.2 H
Glucose 167 H
Calcium 8.9
Vital Signs:
Vital Signs
Temp Pulse Resp BP Pulse Ox
37.5 C 91 18 120/58 93
01/27/24 12:25 01/27/24 12:25 01/27/24 12:25 01/27/24 12:25 01/27/24 12:25
I&O
01/26/24 01/27/24 01/28/24
06:59 06:59 06:59
Intake Total 960 / 960
Output Total 2250 / 2250
Balance -1290 / -1290
Review of Systems
-
Unable to obtain full review of systems at this time due to: Other (cognitive impairment)
Physical Exam
-
General: Well Developed, Well Nourished, No Apparent Distress, Comfortable and Conversant; Negative Respiratory Distress
HEENT: Normocephalic, Atraumatic, Nose Appears Normal and Ears Appear Normal; Negative Oxygen
Respiratory: Clear to Auscultation and Non Labored Respirations; Negative Accessory Resp Muscle Use
Cardiac: Regular Rhythm and S1/S2
GI: Soft, Nontender, Nondistended and Normal Bowel Sounds
Skin: Warm and Dry
Neuro: Awake and Alert
Psych: Calm and Other (cognitive impairment)
Data Reviewed
-
Labs: Labs Reviewed by me
[2024-01-27 14:17] LABS: Body Fluid for Eosinophils No Eosinophils seen
[2024-01-27] MEDS: VITAMIN B-12 1000 MCG PO (15:23)
--- NOTE | 2024-01-27 16:52 | CM ---
Met with pt and her mother at bedside
Per mother pt has cognitive delays and lives in a detention. Currently in process of changing homes
Baseline pt is independent with adl's and ambulation.Receives guidance and emotional support at detention
DME - CPAP
SNF/HH - none
Has ride at d/c
PCP - Dr Tre Ziegler
Pharm - [facility]
CM will follow for d/c planning
Plan - anticipate home to detention or with mother
[2024-01-27 17:14] LABS: Glucose - Point of Care 132 mg/dl (70-99)
[2024-01-27 17:15] VITALS: BP 134/58
--- NOTE | 2024-01-27 17:19 | PTCARENOTE ---
Pt had a renal US and Lumbar/Thoracic Spine MRI done during shift. Prior to MRI Pt's glucose monitor on arm was removed by MRI staff. Glucose monitor given to Pt's mother at bedside.
[2024-01-27] MEDS: NOVOLOG FLEXPEN 15 UNITS SC (18:01)
[2024-01-27 21:22] LABS: Glucose - Point of Care 92 mg/dl (70-99)
[2024-01-27] MEDS: LANTUS 0.200000000000000011 UNITS SC (21:27)
[2024-01-27] MEDS: SEROQUEL 100 MG PO (21:27)
[2024-01-27 23:36] VITALS: BP 138/67
[2024-01-28] MEDS: TYLENOL 650 MG PO ×3 (02:22→19:18)
[2024-01-28] MEDS: NSS 1000 IV ×2 (04:12→15:33)
[2024-01-28 05:42] LABS: Hematocrit 33.8 % (37.0-47.0); Hemoglobin 11.7 g/dL (12.0-16.0); Mean Corp Hgb Conc. 34.6 g/dL (33.0-37.0); Mean Corpuscular Hgb 32.6 pg (27.0-31.0); Mean Corpuscular Volume 94.2 fL (81.0-99.0); Mean Platelet Volume 9.2 fL (7.4-10.4); Platelet Count 191 10^3/uL (130-400); Red Blood Cell Count 3.59 10^6/uL (4.20-5.40); Red Cell Dist. Width 13.3 % (11.5-14.5); White Blood Cell Count 9.3 10^3/uL (4.8-10.8)
[2024-01-28 06:43] LABS: Blood Urea Nitrogen 29 mg/dl (7-17); Calcium 8.6 mg/dl (8.4-10.2); Carbon Dioxide 19 mmol/L (22-30); Chloride 113 mmol/L (98-107); Estimated Creatinine Clearance 51 ml/min; Glucose 137 mg/dl (70-99); Magnesium 2.2 mg/dl (1.6-2.3); Potassium 4.3 mmol/L (3.5-5.1); Sodium 142 mmol/L (135-145); eGFR 42.45
[2024-01-28 07:00] VITALS: BP 134/75
[2024-01-28 07:52] LABS: Glucose - Point of Care 121 mg/dl (70-99)
[2024-01-28] MEDS: NOVOLOG FLEXPEN-MODERATE RESISTANCE SC ×3 (08:11→17:38)
[2024-01-28] MEDS: FEOSOL 325 MG PO ×2 (08:16→20:35)
[2024-01-28] MEDS: KLONOPIN 1 MG PO ×3 (08:16→22:07)
[2024-01-28] MEDS: VITAMIN B-12 1000 MCG PO (08:16)
[2024-01-28] MEDS: NEURONTIN 100 MG PO (08:16)
[2024-01-28] MEDS: PROZAC 40 MG PO (08:16)
[2024-01-28] MEDS: CRESTOR 5 MG PO (08:16)
[2024-01-28] MEDS: HEPARIN 5000 UNITS SC ×3 (08:16→23:14)
[2024-01-28] MEDS: TENORMIN 100 MG PO (08:16)
[2024-01-28] MEDS: NOVOLOG FLEXPEN 15 UNITS SC (08:17)
--- NOTE | 2024-01-28 09:11 | W.PN.NEURO.1 ---
Today's Communication / Plan
-
Do not feel the EMG would be helpful at this time
Discontinue use of Rivas catheter, if continued urinary retention, initiate consideration of both high-dose steroids and immunoglobulin use
Neuro Assessment/Plan
Assessment
Assessment:
Urinary retention is new and patient does have a history of neuroendocrine cancer which would broaden our differential diagnosis.
She is not showing signs or symptoms highly suggestive of spinal cord dysfunction, no weakness in the lower extremities no radicular pain, no saddle anesthesia.
MRI of thoracic and lumbar spines demonstrated diffuse metastatic disease without intramedullary damage
Differential diagnosis includes worsening of chronic diabetic peripheral neuropathy leading to more noticeable paresthesia and falls due to metabolic derangements of MARNIE and possible infection given fever to 101. Differential diagnosis also includes
sensory ganglionopathy.
Clinical context of likely a baseline diabetic peripheral neuropathy, acute illness with metabolic derangements along with presence of patellar and upper extremity reflexes makes Guillain-Thomas� unlikely.
Plan
Recommendations
Do not feel the EMG would be helpful at this time
Discontinue use of Rivas catheter, if continued urinary retention, initiate consideration of both high-dose steroids and immunoglobulin use
Continue to follow
Subjective/Objective
Subjective Data
Date of Service: January 28, 2024
Feet asleep. Improved.
Objective Data
Vital Signs
Temp Pulse Resp BP Pulse Ox
36.5 C 79 18 134/75 96
01/28/24 07:00 01/28/24 07:00 01/28/24 07:00 01/28/24 07:00 01/28/24 07:00
Lab Results
01/28/24 05:32
01/28/24 05:32
Sodium 142 mmol/L (135-145) 01/28/24 05:32
Potassium 4.3 mmol/L (3.5-5.1) 01/28/24 05:32
BUN 29 mg/dl (7-17) H 01/28/24 05:32
Glucose 137 mg/dl (70-99) H 01/28/24 05:32
Calcium 8.6 mg/dl (8.4-10.2) 01/28/24 05:32
Vitamin B12 345 pg/ml (239-931) 01/27/24 05:20
Patient Allergies
Milk Containing Products (Dairy) [Milk Containing Products] Allergy (Verified 12/27/23 10:57)
Unknown
prednisone Allergy (Verified 01/26/24 19:02)
Unknown
Review of Systems
-
Unable to obtain full review of systems at this time due to: Other (Limited by cognitive ability)
History Source: Patient
All other systems: Reviewed and negative
Physical Exam
-
General: No Apparent Distress and Appears Stated Age
Eyes: Round OU, [place] Conjunctivae and No Ptosis
HEENT: Anicteric and Moist Mucous Membranes
Neck: Full Range of Motion
Respiratory: No Dyspnea
Cardiac: No JVD
GI: Non-distended
Skin: Unremarkable
Extremities: No Clubbing, No Cyanosis and No Edema
Psych: Negative Intact Judgement/Insight
Extended Neurological Exam
Mood & Affect: Mood Unremarkable and Affect Unremarkable
Attention Span & Concentration: Awake, Alert, Interactive and Mild Difficulty with 2 Step Request
Memory: Unremarkable
Tremor: Hand Tremor Absent and Head Tremor Absent
Speech: Quality Unremarkable and Quantity Unremarkable
Cranial Nerve II: Left Eye: Pupillary Size Unremarkable and Visual Engle Grossly Intact
Cranial Nerve II: Right Eye: Pupillary Size Unremarkable and Visual Engle Grossly Intact
Cranial Nerves III, IV, : Extraocular Movement: Grossly Intact
Cranial Nerve VII: Facial Symmetry: Normal Facial Symmetry
Cranial Nerve VIII: Hearing: Unremarkable Hearing to Normal Conversational Volume
Cranial Nerve XI: Shoulder Shrug: Unremarkable
Muscle Strength, Overall: Spontaneously Moves (All extremities)
Muscle Bulk & Tone: Bulk Unremarkable and Tone Unremarkable
Pronator Drift: No Drift in Upper Extremities
Coordination: Qvrgiz-[id number] Testing Unremarkable
Data Reviewed
-
MRI Thoracic Spine: Report Reviewed
MRI Lumbar Spine: Report Reviewed
Labs: Report Reviewed
Reviewed with: Physician and Patient
Old Records: Summarized
--- NOTE | 2024-01-28 10:27 | W.PN.HOSP.TC ---
Today's Communication/Plan
-
see A/P
Assessment / Plan
Assessment / Plan
HPI: 49-year-old female with past medical history significant for neuroendocrine tumor status post resection and chemo with recent evidence of recurrence of metastatic disease, history of diabetes on insulin, YU, obesity, hypertension and
hyperlipidemia as well as LESLY who presented to the emergency department with acute onset of bilateral lower extremity numbness upon arousal.
Patient apparently had been in usual state of health up until DOA. She noted numbness in her feet bilaterally. She thought that this will improve over time as it had previously but the symptoms persisted. She had difficulty walking and actually had
multiple falls during the day. Denies hitting her head. She reported that legs feels a little bit heavy. She denies any rash. She denies any changes to her medications.
On arrival in the emergency department patient is noted to have MARNIE with a creatinine at 3.1 from baseline 0.7. She has not had any exposures to contrast recently. Denies any other medication changes. Denied to difficulty with urination, abdominal
distention or abdominal pain, flank pain nausea or vomiting. She reported normal p.o. intake.
Thoracic MRI:
1. Chronic superior endplate fracture of T4 with mild loss of vertebral body height and a moderately exaggerated upper thoracic kyphosis.
2. SEVERE EPIDURAL LIPOMATOSIS throughout the posterior epidural space extending from T1 to T10.
3. Mild central canal stenosis and spinal cord compression at T4/T5.
4. Mild central canal stenosis at T3/T4.
5. Moderate to large central inferior disc extrusion at T11/T12.
6. SMALL METASTATIC MEDIASTINAL and BILATERAL HILAR LYMPH NODES.
LUMBAR SPINE:
1. Small central disc herniation at L3/L4.
2. SMALL METASTATIC RETROPERITONEAL LYMPH NODES.
3. Small hemorrhagic and simple cysts in the left ovary.
4. Small amount of peritoneal fluid in the pelvis.
5. Severe diverticulosis in the sigmoid colon.
A/P:
# Prerenal MARNIE likely from dehydration
# Acute urinary retention
Cr 3.1 on admission -> 1.5, from baseline 0.7
Cont gentle IVF
Rivas placed on admission due to elevated PVR, discontinued Rivas for TOV, cont bladder scan
Start Flomax
Renal US unrevealing, UA unrevealing, urine eosinophil negative
Follow MAULIK, C3/C4 unrevealing
Renal on board
# Fever, unclear etiology
urine Cx no growth,
pending blood Cx
check CXR (although pt without resp symptom)
Would cont empiric ceftriaxone short course
CRP noted to be elevated at 80
# Acute onset of numbness at the soles of feet without weakness.
[place] likely progression of diabetic neuropathy per neuro.
B12 level low normal, started empiric supplement
TSH 0.77
Thoracic/lumbar MRI report as above
Neuro on board
Neurosurgery CS for MRI finding of 'Mild central canal stenosis and spinal cord compression at T4/T5'
# neuroendocrine tumor with recent evidence of recurrence of metastatic disease
Pt follows with Dr Deshawn alexpt
# IDDM
Cont CONTROL ROOM TECHNICIAN Lantus and Aspart at reduced doses: Lantus at 20 from CONTROL ROOM TECHNICIAN 40 units HS; aspart at 15 units AC from CONTROL ROOM TECHNICIAN 30 units AC
Cover with moderate sliding scale
# LESLY
oxygen prn hs
DVT PPX - heparin sq
Full Code
Anticipated Discharge: > 48 hours
Subjective/Interval History
-
Date of Service: January 28, 2024
Objective Data
-
Labs:
Laboratory Results
01/28/24
05:32
WBC 9.3
Hgb 11.7 L
Hct 33.8 L
Plt Count 191
Sodium 142
Potassium 4.3
Chloride 113 H
Carbon Dioxide 19 L
BUN 29 H
Creatinine 1.5 H
Glucose 137 H
Calcium 8.6
Vital Signs:
Vital Signs
Temp Pulse Resp BP Pulse Ox
36.5 C 79 18 134/75 96
01/28/24 07:00 01/28/24 07:00 01/28/24 07:00 01/28/24 07:00 01/28/24 07:00
I&O
01/27/24 01/28/24 01/29/24
06:59 06:59 06:59
Intake Total 960 / 960 3050 / 3050
Output Total 2250 / 2250 2500 / 2500
Balance -1290 / -1290 550 / 550
Review of Systems
-
Unable to obtain full review of systems at this time due to: Other (cognitive impairment)
Physical Exam
-
General: Well Developed, Well Nourished, No Apparent Distress, Comfortable and Conversant; Negative Respiratory Distress
HEENT: Normocephalic, Atraumatic, Nose Appears Normal and Ears Appear Normal; Negative Oxygen
Respiratory: Clear to Auscultation and Non Labored Respirations; Negative Accessory Resp Muscle Use
Cardiac: Regular Rhythm and S1/S2
GI: Soft, Nontender, Nondistended and Normal Bowel Sounds
Skin: Warm and Dry
Neuro: Awake and Alert
Psych: Calm and Other (cognitive impairment)
Data Reviewed
-
MRI: Report Reviewed by me
Labs: Labs Reviewed by me
[2024-01-28] MEDS: ROCEPHIN 1000 MG IV (11:55)
[2024-01-28] MEDS: FLOMAX 0.400000000000000022 MG PO (11:55)
--- NOTE | 2024-01-28 11:59 | W.PN.NEPH.PH ---
Today's Communication / Plan
-
observe
Strong concern for obstructive component for MARNIE
Follow voiding trial closely
Assessment/Plan
-
Impression:
Acute kidney injury
Bilateral lower extremity numbness
Diabetes
Hypertension
Obstructive sleep apnea
Neuroendocrine tumor
Muscle atonia
Plan:
MARNIE:
-creatinine down to 1.5
-grossly non oliguric via fowler
-UA bland
-metabolic aicidosis slowly improvng
-Fractional secretion of sodium not consistent with prerenal stimulus
-No obvious nephrotoxic insult, however patient was prescribed Cefdinifir late last week for sinusitis, follow-up urine eosinophils to assess for drug-induced interstitial nephritis: negative
-Kidney and bladder ultrasound obtained, maintain Fowler catheter as urinary retention with bladder atonia could be contributing to kidney failure: u/s normal except for enlarged kidneys
-holding ARB in setting of acute kidney and
-
-
Date of Service: January 28, 2024
CC / HPI / ROS
-
Chief Complaint:
MARNIE
History of Present Illness:
Hemodynamically stable
Creatinine improved to 1.5
Review of Systems:
Lower extremity leg numbness
Nonoliguric via Fowler (d/c this am)
Labs
-
Labs:
WBC 9.3 10^3/uL (4.8-10.8) 01/28/24 05:32
RBC 3.59 10^6/uL (4.20-5.40) L 01/28/24 05:32
Hgb 11.7 g/dL (12.0-16.0) L 01/28/24 05:32
Hct 33.8 % (37.0-47.0) L 01/28/24 05:32
Plt Count 191 10^3/uL (130-400) 01/28/24 05:32
Sodium 142 mmol/L (135-145) 01/28/24 05:32
Potassium 4.3 mmol/L (3.5-5.1) 01/28/24 05:32
Chloride 113 mmol/L (98-107) H 01/28/24 05:32
Carbon Dioxide 19 mmol/L (22-30) L 01/28/24 05:32
BUN 29 mg/dl (7-17) H 01/28/24 05:32
Creatinine 1.5 mg/dL (0.6-1.0) H 01/28/24 05:32
eGFR 42.45 01/28/24 05:32
Glucose 137 mg/dl (70-99) H 01/28/24 05:32
Calcium 8.6 mg/dl (8.4-10.2) 01/28/24 05:32
Albumin 4.4 g/dl (3.5-5.0) 01/26/24 19:09
Physical Exam
-
Vital Signs:
Vital Signs
Temp Pulse Resp BP Pulse Ox
97.7 F 79 18 134/75 96
01/28/24 07:00 01/28/24 07:00 01/28/24 07:00 01/28/24 07:00 01/28/24 07:00
Cardiovascular:: Regular rate and rhythm
Respiratory:: Bilateral: CTA
Lung Excursion:: Normal
Abdomen:: Nontender and Soft
Bowel Sounds:: Normal
Extremity Edema:: None: Bilateral:
Fowler Catheter: Yes
[2024-01-28 12:00] LABS: Glucose - Point of Care 76 mg/dl (70-99)
--- NOTE | 2024-01-28 12:06 | PHANOTE ---
Spoke to patient regarding preferred pharmacy. When she resides in detention she uses [facility] in [place]. If she is staying with her mother she gets her prescription filled at [facility] in [place].
[2024-01-28] MEDS: NOVOLOG FLEXPEN SC (12:39)
[2024-01-28] MEDS: NOVOLOG FLEXPEN 5 UNITS SC ×2 (12:41→18:08)
[2024-01-28 12:46] VITALS: BP 130/65; PULSE 70; O2SAT 97
[2024-01-28 12:49] VITALS: BP 130/65; PULSE 72
[2024-01-28 15:00] VITALS: BP 141/69
[2024-01-28 16:55] LABS: Glucose - Point of Care 88 mg/dl (70-99)
[2024-01-28 19:23] LABS: Glucose - Point of Care 85 mg/dl (70-99)
[2024-01-28 21:26] LABS: Glucose - Point of Care 101 mg/dl (70-99)
[2024-01-28] MEDS: SEROQUEL 100 MG PO (22:07)
[2024-01-28] MEDS: LANTUS 0.149999999999999994 UNITS SC (22:07)
[2024-01-28 23:29] VITALS: BP 125/48
[2024-01-29 01:01] LABS: Glucose - Point of Care 101 mg/dl (70-99)
[2024-01-29] MEDS: MELATONIN 5 MG PO (01:43)
--- NOTE | 2024-01-29 05:13 | W.PN.UPDATE ---
Update Note
Progress Note Update
RN notified PUMP PRESS OPERATOR, patient's HR 40's. was in 80's-90's earlier. Asymptomatic, checked manual and remained 44, 129/48, 97% Ra, 18, 97.4. EKG noted to be abnormal with prolonged QT, WPW pattern, DC'd Zofran, remains on Seroquel and Klonopin. will place
on telemonitor, consult Maintenance Of Way Superintendent. Hx of LESLY, does not wear CPAP.
--- NOTE | 2024-01-29 05:41 | PTCARENOTE ---
HR 44 with vital sign check at midnight. Pt asleep and easily awakened. SPEECH LANGUAGE SPECIALIST aware. Ekg done and pt placed on telemetry (box #7). Pt in normal sinus rhythm with HR in 60-70s. Zofran d/c'd and cardiology consulted.
[2024-01-29 05:47] LABS: Hematocrit 30.8 % (37.0-47.0); Mean Corp Hgb Conc. 35.7 g/dL (33.0-37.0); Mean Corpuscular Hgb 32.8 pg (27.0-31.0); Mean Corpuscular Volume 91.9 fL (81.0-99.0); Mean Platelet Volume 9.3 fL (7.4-10.4); Platelet Count 204 10^3/uL (130-400); Red Blood Cell Count 3.35 10^6/uL (4.20-5.40); Red Cell Dist. Width 13.3 % (11.5-14.5)
[2024-01-29 06:15] LABS: Blood Urea Nitrogen 23 mg/dl (7-17); Calcium 8.4 mg/dl (8.4-10.2); Carbon Dioxide 19 mmol/L (22-30); Chloride 112 mmol/L (98-107); Estimated Creatinine Clearance 70 ml/min; Glucose 94 mg/dl (70-99); Potassium 3.9 mmol/L (3.5-5.1); Sodium 142 mmol/L (135-145); eGFR > 60.00
[2024-01-29 07:00] VITALS: BP 121/57
[2024-01-29 08:02] LABS: Glucose - Point of Care 111 mg/dl (70-99)
[2024-01-29 09:08] LABS: ANA, IgG Reflex to HEp-2 None Detected (None Detected)
[2024-01-29] MEDS: FLOMAX 0.400000000000000022 MG PO (09:33)
[2024-01-29] MEDS: CRESTOR 5 MG PO (09:33)
[2024-01-29] MEDS: NEURONTIN 100 MG PO (09:33)
[2024-01-29] MEDS: FEOSOL 325 MG PO ×2 (09:33→21:01)
[2024-01-29] MEDS: PEPCID 20 MG PO (09:33)
[2024-01-29] MEDS: KLONOPIN 1 MG PO ×3 (09:35→21:01)
[2024-01-29] MEDS: HEPARIN 5000 UNITS SC ×2 (09:35→18:22)
[2024-01-29] MEDS: VITAMIN B-12 1000 MCG PO (09:35)
[2024-01-29] MEDS: NOVOLOG FLEXPEN-MODERATE RESISTANCE SC ×3 (09:35→17:33)
[2024-01-29] MEDS: TENORMIN 50 MG PO (09:35)
[2024-01-29] MEDS: PROZAC 40 MG PO (09:36)
[2024-01-29] MEDS: NOVOLOG FLEXPEN 5 UNITS SC (09:36)
[2024-01-29 10:42] VITALS: BP 136/68; PULSE 69; O2SAT 98
[2024-01-29 11:00] VITALS: BP 134/62
[2024-01-29 12:37] LABS: Glucose - Point of Care 125 mg/dl (70-99)
--- NOTE | 2024-01-29 13:11 | W.PN.HOSP.TC ---
Today's Communication/Plan
-
see A/P
Assessment / Plan
Assessment / Plan
HPI: 49-year-old female with past medical history significant for neuroendocrine tumor status post resection and chemo with recent evidence of recurrence of metastatic disease, history of diabetes on insulin, YU, obesity, hypertension and
hyperlipidemia as well as LESLY who presented to the emergency department with acute onset of bilateral lower extremity numbness upon arousal.
Patient apparently had been in usual state of health up until DOA. She noted numbness in her feet bilaterally. She thought that this will improve over time as it had previously but the symptoms persisted. She had difficulty walking and actually had
multiple falls during the day. Denies hitting her head. She reported that legs feels a little bit heavy. She denies any rash. She denies any changes to her medications.
On arrival in the emergency department patient is noted to have MARNIE with a creatinine at 3.1 from baseline 0.7. She has not had any exposures to contrast recently. Denies any other medication changes. Denied to difficulty with urination, abdominal
distention or abdominal pain, flank pain nausea or vomiting. She reported normal p.o. intake.
Thoracic MRI:
1. Chronic superior endplate fracture of T4 with mild loss of vertebral body height and a moderately exaggerated upper thoracic kyphosis.
2. SEVERE EPIDURAL LIPOMATOSIS throughout the posterior epidural space extending from T1 to T10.
3. Mild central canal stenosis and spinal cord compression at T4/T5.
4. Mild central canal stenosis at T3/T4.
5. Moderate to large central inferior disc extrusion at T11/T12.
6. SMALL METASTATIC MEDIASTINAL and BILATERAL HILAR LYMPH NODES.
LUMBAR SPINE:
1. Small central disc herniation at L3/L4.
2. SMALL METASTATIC RETROPERITONEAL LYMPH NODES.
3. Small hemorrhagic and simple cysts in the left ovary.
4. Small amount of peritoneal fluid in the pelvis.
5. Severe diverticulosis in the sigmoid colon.
A/P:
# Prerenal MARNIE likely from dehydration
# Acute urinary retention
Cr 3.1 on admission -> 1.1 today, from baseline 0.7
s/p gentle IVF
Fowler placed on admission due to elevated PVR, cont TOV for now, replace fowler if failed TOV
Started Flomax
Renal US unrevealing, UA unrevealing, urine eosinophil negative, MAULIK negative, C3/C4 unrevealing
Check CT AP to eval for extrinsic compression causing urinary retention
Renal on board
# Fever, unclear etiology, resolved
urine Cx no growth, blood Cx no growth
CXR noted small left pleural effusion with associated atelectasis and/or pneumonia. Also noted tiny bibasilar nodular opacities may reflect small pulmonary nodules
Of note, pt without resp symptom
Would cont empiric ceftriaxone short course 5 days
MRSA screen negative
CRP noted to be elevated at 80
# Acute onset of numbness at the soles of feet without weakness.
[place] likely progression of diabetic neuropathy per neuro.
B12 level low normal, started empiric supplement
TSH 0.77
Thoracic/lumbar MRI report as above
d/w Neurosurgery for the MRI finding of 'Mild central canal stenosis and spinal cord compression at T4/T5', no surgery needed for this per Neurosurgeon
Neuro on board
# Cardiac arrhythmia, bradycardia with Bigeminy vs WPW rhythm, noted overnight 01/27
# Prolonged QTC at 529
Card CSed for arrhythmia eval
# neuroendocrine tumor with recent evidence of recurrence of metastatic disease
# Incidental pulm nodules on CXR
according to mother, pt is known to have pulm nodules
informed mother that pt can follow up with onc outpt for her pulm nodules
Pt follows with Dr Hess outpt
# IDDM
Cont insulin: adjust Lantus to 10 HS (from 40 units HS); Stop further aspart (INPATIENT NURSING AIDE at 30 units AC)
Cover with moderate sliding scale
# LESLY
oxygen prn hs
DVT PPX - heparin sq
Full Code
DW Card
DW mother at bedside
DW RN
total time spent 51 min
Anticipated Discharge: Within 24 hours
Subjective/Interval History
-
Date of Service: January 29, 2024
Objective Data
-
Labs:
Laboratory Results
01/29/24
05:20
WBC 8.0
Hgb 11.0 L
Hct 30.8 L
Plt Count 204
Sodium 142
Potassium 3.9
Chloride 112 H
Carbon Dioxide 19 L
BUN 23 H
Creatinine 1.1 H
Glucose 94
Calcium 8.4
Vital Signs:
Vital Signs
Temp Pulse Resp BP Pulse Ox
36.7 C 71 18 134/62 97
01/29/24 11:00 01/29/24 11:00 01/29/24 11:00 01/29/24 11:00 01/29/24 11:00
I&O
01/28/24 01/29/24 01/30/24
06:59 06:59 06:59
Intake Total 3050 / 3050 3640 / 3640
Output Total 2500 / 2500 1125 / 1125
Balance 550 / 550 2515 / 2515
Review of Systems
-
Unable to obtain full review of systems at this time due to: Other (cognitive impairment)
Physical Exam
-
General: Well Developed, Well Nourished, No Apparent Distress, Comfortable and Conversant; Negative Respiratory Distress
HEENT: Normocephalic, Atraumatic, Nose Appears Normal and Ears Appear Normal; Negative Oxygen
Respiratory: Clear to Auscultation and Non Labored Respirations; Negative Accessory Resp Muscle Use
Cardiac: Regular Rhythm and S1/S2
GI: Soft, Nontender, Nondistended and Normal Bowel Sounds
Skin: Warm and Dry
Neuro: Awake and Alert
Psych: Calm and Other (cognitive impairment)
Data Reviewed
-
MRI: Report Reviewed by me and Discussed with Physician (Neurosurgeon Dr Mcmillan)
Medical Tests (Nuc Med, Echo etc): Report Reviewed by me (kidney US )
Labs: Labs Reviewed by me
--- NOTE | 2024-01-29 14:13 | W.PN.UPDATE ---
Update Note
Progress Note Update
Cardiology asked to see patient for concerns of bradycardia with heart rates in the 40s during sleep. Patient was not on monitor but low heart rate was discovered during assessment of vital signs. EKG was performed which demonstrated sinus rhythm
with frequent PVCs, IVCD/right bundle branch block pattern with heart rates in 70s. 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 Repeat EKG was performed 7 hours later which showed sinus rhythm with IVCD/right bundle branch
block pattern. Reviewed both EKGs with electrophysiology and no evidence of WPW. Reviewed telemetry which shows occasional episodes of ventricular bigeminy otherwise heart rates remain in the 60s and low 70s bpm. Electrolytes stable. Per review
of outpatient records does appear that patient was on 50 mg of atenolol and 120 mg of diltiazem as outpatient. Patient has not been receiving either of these agents thus far this admission. Atenolol added back 01/29/2024. Continue to follow on
tele. Discussed with hospitalist Dr. Bobby. Please consult if cardiac issue arises.
[2024-01-29] MEDS: ROCEPHIN 1000 MG IV (14:16)
[2024-01-29] MEDS: STERILE WATER FOR INJECTION 10 ML IV (14:17)
[2024-01-29] MEDS: TYLENOL 650 MG PO (14:20)
[2024-01-29] MEDS: NOVOLOG FLEXPEN SC (14:33)
[2024-01-29] MEDS: OMNIPAQUE 50 ML PO (14:48)
[2024-01-29 15:00] VITALS: BP 157/78
--- NOTE | 2024-01-29 15:15 | W.PN.NEPH.PH ---
Today's Communication / Plan
-
consider fowler
follow labs
Assessment/Plan
-
Impression:
Acute kidney injury
Bilateral lower extremity numbness
Diabetes
Hypertension
Obstructive sleep apnea
Neuroendocrine tumor
Muscle atonia
Plan:
MARNIE:
-creatinine down to 1.1, bland UA, U eosinophil neg with recent use of abx
renal US with out hydro while on fowler, suspect bladder atonia could be the cause of retention
-grossly non oliguric, still with retention off fowler
CT ordered per primary , likely need to back on fowler
eventually need eval, cont flomax
-UA bland
-metabolic aicidosis stable
-holding ARB in setting of acute kidney -may resume if BP high
d/w mother at bedside , nursing
-
-
Date of Service: January 29, 2024
CC / HPI / ROS
-
Chief Complaint:
MARNIE
History of Present Illness:
Hemodynamically stable
Creatinine improved to 1.1
bicarb at 19 stable
Review of Systems:
no complaints
no cp or sob
non oliguric with SC 750cc this am
Labs
-
Labs:
WBC 8.0 10^3/uL (4.8-10.8) 01/29/24 05:20
RBC 3.35 10^6/uL (4.20-5.40) L 01/29/24 05:20
Hgb 11.0 g/dL (12.0-16.0) L 01/29/24 05:20
Hct 30.8 % (37.0-47.0) L 01/29/24 05:20
Plt Count 204 10^3/uL (130-400) 01/29/24 05:20
Sodium 142 mmol/L (135-145) 01/29/24 05:20
Potassium 3.9 mmol/L (3.5-5.1) 01/29/24 05:20
Chloride 112 mmol/L (98-107) H 01/29/24 05:20
Carbon Dioxide 19 mmol/L (22-30) L 01/29/24 05:20
BUN 23 mg/dl (7-17) H 01/29/24 05:20
Creatinine 1.1 mg/dL (0.6-1.0) H 01/29/24 05:20
eGFR > 60.00 01/29/24 05:20
Glucose 94 mg/dl (70-99) 01/29/24 05:20
Calcium 8.4 mg/dl (8.4-10.2) 01/29/24 05:20
Albumin 4.4 g/dl (3.5-5.0) 01/26/24 19:09
Physical Exam
-
Vital Signs:
Vital Signs
Temp Pulse Resp BP Pulse Ox
98.1 F 71 18 134/62 97
01/29/24 11:00 01/29/24 11:00 01/29/24 11:00 01/29/24 11:00 01/29/24 11:00
Cardiovascular:: Regular rate and rhythm
Respiratory:: Bilateral: CTA
Lung Excursion:: Normal
Abdomen:: Nontender and Soft
Extremity Edema:: None: Bilateral:
Fowler Catheter: No
--- NOTE | 2024-01-29 15:54 | CM ---
Case management following for d/c planning
PT/OT recommending SNF
Met with pt and her mother at bedside
Updated of recommendations for SNF
Mother reports pt currently without insurance - she reports she has spoken with the billing office and will fill out necessary paperwork/forms to have insurance reinstated
Discussed unable to go to SNF or receive home care services until insurance in place
Plan - tbd pending insurance coverage
[2024-01-29 17:02] LABS: Glucose - Point of Care 86 mg/dl (70-99)
[2024-01-29 19:27] VITALS: BP 139/65
[2024-01-29] MEDS: SEROQUEL 100 MG PO (21:01)
[2024-01-29 21:04] LABS: Glucose - Point of Care 92 mg/dl (70-99)
[2024-01-29] MEDS: LANTUS 0.100000000000000006 UNITS SC (21:15)
[2024-01-29 23:45] VITALS: BP 131/61
[2024-01-30] MEDS: HEPARIN 5000 UNITS SC ×2 (00:44→09:25)
[2024-01-30 03:06] VITALS: BP 136/70
[2024-01-30] MEDS: TYLENOL 650 MG PO (06:36)
[2024-01-30 07:31] LABS: Glucose - Point of Care 103 mg/dl (70-99)
[2024-01-30 07:40] VITALS: BP 138/62
[2024-01-30 07:46] LABS: Hematocrit 32.4 % (37.0-47.0); Hemoglobin 11.7 g/dL (12.0-16.0); Mean Corp Hgb Conc. 36.1 g/dL (33.0-37.0); Mean Corpuscular Hgb 33.4 pg (27.0-31.0); Mean Corpuscular Volume 92.6 fL (81.0-99.0); Mean Platelet Volume 9.6 fL (7.4-10.4); Platelet Count 223 10^3/uL (130-400); Red Cell Dist. Width 13.2 % (11.5-14.5); White Blood Cell Count 7.4 10^3/uL (4.8-10.8)
[2024-01-30] MEDS: NOVOLOG FLEXPEN-MODERATE RESISTANCE SC ×3 (08:11→15:45)
[2024-01-30 08:16] LABS: Blood Urea Nitrogen 21 mg/dl (7-17); Calcium 8.9 mg/dl (8.4-10.2); Carbon Dioxide 21 mmol/L (22-30); Chloride 109 mmol/L (98-107); Estimated Creatinine Clearance 77 ml/min; Glucose 97 mg/dl (70-99); Magnesium 1.9 mg/dl (1.6-2.3); Potassium 3.8 mmol/L (3.5-5.1); Sodium 142 mmol/L (135-145); eGFR > 60.00
[2024-01-30] MEDS: PROZAC 40 MG PO (09:24)
[2024-01-30] MEDS: NEURONTIN 100 MG PO (09:24)
[2024-01-30] MEDS: CRESTOR 5 MG PO (09:24)
[2024-01-30] MEDS: FEOSOL 325 MG PO (09:24)
[2024-01-30] MEDS: KLONOPIN 1 MG PO ×2 (09:25→15:45)
[2024-01-30] MEDS: VITAMIN B-12 1000 MCG PO (09:25)
[2024-01-30] MEDS: FLOMAX 0.400000000000000022 MG PO (09:25)
[2024-01-30] MEDS: TENORMIN 50 MG PO (09:25)
--- NOTE | 2024-01-30 10:25 | W.PN.HOSP.TC ---
Addendum entered and electronically signed by Jayna Bobby MD 01/30/24 16:45:
total DC time 40 min
Discussed with mother on the phone
Original Note:
Today's Communication/Plan
-
dispo planning
Assessment / Plan
Assessment / Plan
HPI: 49-year-old female with past medical history significant for neuroendocrine tumor status post resection and chemo with recent evidence of recurrence of metastatic disease, history of diabetes on insulin, YU, obesity, hypertension and
hyperlipidemia as well as LESLY who presented to the emergency department with acute onset of bilateral lower extremity numbness upon arousal.
Patient apparently had been in usual state of health up until DOA. She noted numbness in her feet bilaterally. She thought that this will improve over time as it had previously but the symptoms persisted. She had difficulty walking and actually had
multiple falls during the day. Denies hitting her head. She reported that legs feels a little bit heavy. She denies any rash. She denies any changes to her medications.
On arrival in the emergency department patient is noted to have MARNIE with a creatinine at 3.1 from baseline 0.7. She has not had any exposures to contrast recently. Denies any other medication changes. Denied to difficulty with urination, abdominal
distention or abdominal pain, flank pain nausea or vomiting. She reported normal p.o. intake.
Thoracic MRI:
1. Chronic superior endplate fracture of T4 with mild loss of vertebral body height and a moderately exaggerated upper thoracic kyphosis.
2. SEVERE EPIDURAL LIPOMATOSIS throughout the posterior epidural space extending from T1 to T10.
3. Mild central canal stenosis and spinal cord compression at T4/T5.
4. Mild central canal stenosis at T3/T4.
5. Moderate to large central inferior disc extrusion at T11/T12.
6. SMALL METASTATIC MEDIASTINAL and BILATERAL HILAR LYMPH NODES.
LUMBAR SPINE:
1. Small central disc herniation at L3/L4.
2. SMALL METASTATIC RETROPERITONEAL LYMPH NODES.
3. Small hemorrhagic and simple cysts in the left ovary.
4. Small amount of peritoneal fluid in the pelvis.
5. Severe diverticulosis in the sigmoid colon.
A/P:
# Prerenal MARNIE likely from dehydration
# Acute urinary retention
Cr 3.1 on admission -> 1.0 today, from baseline 0.7
s/p gentle IVF
Rivas placed on admission due to elevated PVR, she passed voiding trial (she cannot void in bed kruse, can only go in the toilet)
Started Flomax, cont
Renal US unrevealing, UA unrevealing, urine eosinophil negative, MAULIK negative, C3/C4 unrevealing
CT AP did not reveal any extrinsic compression causing urinary retention, CT AP unrevealing, neg for nephroureterolithiasis or hydronephrosis.
Renal on board
# Fever, unclear etiology, resolved
urine Cx no growth, blood Cx no growth
CXR noted small left pleural effusion with associated atelectasis and/or pneumonia. Also noted tiny bibasilar nodular opacities may reflect small pulmonary nodules
Of note, pt without resp symptom
Would cont empiric Abx short course for 5 days , cont current IV Ceftriaxone
MRSA screen negative
CRP noted to be elevated at 80
# Acute onset of numbness at the soles of feet without weakness.
Summit likely progression of diabetic neuropathy per neuro.
B12 level low normal, started empiric supplement
TSH 0.77
Thoracic/lumbar MRI report as above
d/w Neurosurgery for the MRI finding of 'Mild central canal stenosis and spinal cord compression at T4/T5', no surgery needed for this per Neurosurgeon
Neuro on board
# Cardiac arrhythmia, bradycardia with Bigeminy noted overnight 01/27
# Prolonged QTC at 529
Card ruled out WPW syndrome, confirmed ventricular bigeminy otherwise heart rates remain in the 60s and low 70s bpm.
Cont Atenolol
BUTTON CLAMPER Cardizem has not been restarted, would discontinue at the time of discharge
Pt can follow up with card outpt
# neuroendocrine tumor with recent evidence of recurrence of metastatic disease
# Incidental pulm nodules on CXR
according to mother, pt is known to have pulm nodules.
informed mother that pt can follow up with onc outpt for her pulm nodules
Pt follows with Dr Hess outpt
# IDDM
Cont insulin: adjust Lantus to 10 HS (from 40 units HS); Stop further aspart (BUTTON CLAMPER at 30 units AC)
Cover with moderate sliding scale
# LESLY
oxygen prn hs
DVT PPX - heparin sq
Full Code
Dispo: PT recc SNF, however pt does not have insurance for SNF (or for for that matter)
DW RN
Anticipated Discharge: Within 24 hours
Subjective/Interval History
-
Date of Service: January 30, 2024
Objective Data
-
Labs:
Laboratory Results
01/30/24
06:57
WBC 7.4
Hgb 11.7 L
Hct 32.4 L
Plt Count 223
Sodium 142
Potassium 3.8
Chloride 109 H
Carbon Dioxide 21 L
BUN 21 H
Creatinine 1.0
Glucose 97
Calcium 8.9
Vital Signs:
Vital Signs
Temp Pulse Resp BP Pulse Ox
36.8 C 48 16 138/62 94
01/30/24 07:40 01/30/24 07:40 01/30/24 07:40 01/30/24 07:40 01/30/24 07:40
I&O
01/29/24 01/30/24 01/31/24
06:59 06:59 06:59
Intake Total 3640 / 3640 1200 / 1200
Output Total 1125 / 1125 750 / 750
Balance 2515 / 2515 450 / 450
Review of Systems
-
Unable to obtain full review of systems at this time due to: Other (cognitive impairment)
Physical Exam
-
General: Well Developed, Well Nourished, No Apparent Distress, Comfortable and Conversant; Negative Respiratory Distress
HEENT: Normocephalic, Atraumatic, Nose Appears Normal and Ears Appear Normal; Negative Oxygen
Respiratory: Clear to Auscultation and Non Labored Respirations; Negative Accessory Resp Muscle Use
Cardiac: Regular Rhythm and S1/S2
GI: Soft, Nontender, Nondistended and Normal Bowel Sounds
Skin: Warm and Dry
Neuro: Awake and Alert
Psych: Calm and Other (cognitive impairment)
Data Reviewed
-
MRI: Report Reviewed by me and Discussed with Physician (Neurosurgeon Dr Mcmillan)
Medical Tests (Nuc Med, Echo etc): Report Reviewed by me (kidney US )
Labs: Labs Reviewed by me
[2024-01-30 11:24] VITALS: BP 150/67
[2024-01-30 11:50] LABS: Glucose - Point of Care 147 mg/dl (70-99)
[2024-01-30] MEDS: STERILE WATER FOR INJECTION 10 ML IV (12:01)
[2024-01-30] MEDS: ROCEPHIN 1000 MG IV (12:02)
--- NOTE | 2024-01-30 13:09 | W.PN.NEPH.PH ---
Today's Communication / Plan
-
follow PVR
d/c plan
Assessment/Plan
-
Impression:
Acute kidney injury
Bilateral lower extremity numbness
Diabetes
Hypertension
Obstructive sleep apnea
Neuroendocrine tumor
Muscle atonia
Plan:
MARNIE:
-creatinine down to 1, bland UA, U eosinophil neg with recent use of abx
renal US with out hydro while on fowler, suspect bladder atonia or shy bladder could be the cause of retention
now seem urinating well, follow PVR currently at 0cc
CT abd no acute findings, cont flomax
--metabolic aicidosis stable
-holding ARB in setting of acute kidney -may resume if BP high
d/w pt and nursing
-
-
Date of Service: January 30, 2024
CC / HPI / ROS
-
Chief Complaint:
MARNIE
History of Present Illness:
Hemodynamically stable
Creatinine improved to 1.
bicarb at 21 stable
Review of Systems:
no complaints
no cp or sob
able to walk in the room
wants to go to her mom home
Labs
-
Labs:
WBC 7.4 10^3/uL (4.8-10.8) 01/30/24 06:57
RBC 3.50 10^6/uL (4.20-5.40) L 01/30/24 06:57
Hgb 11.7 g/dL (12.0-16.0) L 01/30/24 06:57
Hct 32.4 % (37.0-47.0) L 01/30/24 06:57
Plt Count 223 10^3/uL (130-400) 01/30/24 06:57
Sodium 142 mmol/L (135-145) 01/30/24 06:57
Potassium 3.8 mmol/L (3.5-5.1) 01/30/24 06:57
Chloride 109 mmol/L (98-107) H 01/30/24 06:57
Carbon Dioxide 21 mmol/L (22-30) L 01/30/24 06:57
BUN 21 mg/dl (7-17) H 01/30/24 06:57
Creatinine 1.0 mg/dL (0.6-1.0) 01/30/24 06:57
eGFR > 60.00 01/30/24 06:57
Glucose 97 mg/dl (70-99) 01/30/24 06:57
Calcium 8.9 mg/dl (8.4-10.2) 01/30/24 06:57
Albumin 4.4 g/dl (3.5-5.0) 01/26/24 19:09
Physical Exam
-
Vital Signs:
Vital Signs
Temp Pulse Resp BP Pulse Ox
98.5 F 71 18 150/67 98
01/30/24 11:24 01/30/24 11:24 01/30/24 11:24 01/30/24 11:24 01/30/24 11:24
Cardiovascular:: Regular rate and rhythm
Respiratory:: Bilateral: CTA
Lung Excursion:: Normal
Abdomen:: Nontender and Soft
Extremity Edema:: None: Bilateral:
Fowler Catheter: No
[2024-01-30 14:00] VITALS: BP 146/68
--- NOTE | 2024-01-30 14:20 | CM ---
Case management following for d/c planning
Spoke with pts mother
Mother reports she feels comfortable taking her daughter home with her as she now is able to walk and urinate on own
She will continue to follow up on pts insurance and probable assited living facility for future
Dr Bobby aware. Mother requested updates from doctor
Plan - home with family care
--- NOTE | 2024-01-30 16:29 | W.DCSUMMARY ---
Discharge Summary
Discharge Data
Date of Admission: 01/28/24
Date of Discharge: 01/30/24
-
Pending Results: No
Hospital Course
Principal Diagnosis:
Acute onset of numbness at the soles of feet without weakness, felt likely due to peripheral neuropathy from diabetes per neurology
Resolved acute kidney injury (MARNIE)
Resolved acute urinary retention
Fever, unclear etiology, resolved
Chronic Diagnoses:�
Neuroendocrine tumor with recent evidence of recurrence of metastatic disease
Pulmonary nodules on CXR, known to mother
Insulin-dependent diabetes
Obstructive sleep apnea
Mental handicap
Consultations:�
Neurology
Neurosurgery
Nephrology
Procedures:�
None
Clinical course:�
This is a 49-year-old female with past medical history as stated above, who presented with numbness at the sole of her feet. She was also found to have MARNIE.
Problem 1:
Acute onset of numbness at the soles of feet without weakness.
This was felt likely due to progression of diabetic neuropathy per neuro.
Her B12 level was also noted to be low normal at 300, and she was started with B12 supplement.
Her Thoracic/lumbar MRI noted epidural lipomatosis of the thoracic spine, mild central canal stenosis and mild spinal cord compression at T4-T5, small metastatic mediastinal and bilateral hilar lymph nodes, metastatic retroperitoneal lymph nodes.
These findings were discussed with neurosurgery, and per neurosurgery, there is no indication for surgery.
Problem 2:
Prerenal MARNIE likely from dehydration- resolved.
The patient serum creatinine improved from 3.1 on admission to 1.0 on the day of discharge. Her baseline serum creatinine is at 0.7.
Rivas was placed on admission due to elevated PVR, but she passed voiding trial (she cannot void in bed kruse, can only go in the toilet).
Her Renal US was unrevealing, UA was unrevealing, urine eosinophil was negative, MAULIK negative, C3/C4 unrevealing.
Her CT AP did not reveal any extrinsic compression causing urinary retention, CT AP was also unrevealing, neg for nephroureterolithiasis or hydronephrosis.
Problem 3:
Fever, unclear etiology, resolved.
Panculture and infectious workup were negative: urine culture no growth, blood culture no growth, CXR noted small left pleural effusion with associated atelectasis and/or pneumonia (but she had no respiratory symptom), MRSA screen negative.
It was unclear whether the fever was associated with an acute infectious process or not, but given she improved clinically on empiric antibiotic ceftriaxone, she can continue and complete the course of antibiotic for total 5 days.
She was discharged with cefdinir for 2 more days.
Problem 4:
Cardiac arrhythmia due to ventricular Bigeminy.
The patient's initial EKG noted possible Wgerd-Oceppfrxh-Iqlrv syndrome, but Tgrgj-Hfpqamqdv-Gxvkz syndrome was ruled out per cardiology.
She can continue with her POWERHOUSE [employer]ER Atenolol.
Her prior to admission Cardizem was put on hold, and she can discuss with her PCP whether to resume it or not.
Problem 5:
Insulin-dependent diabetes.
Her blood sugar significantly improved with strict carb controlled diet while in the hospital, hence her prior to admission Lantus was decreased from 40 units at bedtime to 10 units at bedtime.
She can continue with Lantus 10 units at bedtime, and hold aspart if she is willing to be compliant with a strict carb controlled diet.
As for the rest of her medical problems, they were stable during her hospital stay.
Discharge Plan
-
Patient Disposition: Home (Routine Discharge)
Discharge Diagnosis/Procedures: Acute onset of numbness at the soles of feet without weakness possibly due to diabetes neuropathy; Prerenal acute kidney injury from dehydration; resolved acute urinary retention; Fever (unclear etiology and
resolved); neuroendocrine tumor with recent evidence of recurrence of metastatic disease; Incidental pulmonary nodules; insulin-dependent diabetes
Condition: Fair
Diet: As tolerated and Diabetic, Carb Controlled
Activity: As tolerated
Driving Restrictions: No driving
Referrals:
Tre Ziegler MD [Family Provider] - in less than 1 week
Additional Discharge Medication Instructions: Continue Lantus 10 units at night if you are going to continue with a strict carbohydrate controlled diet
Continue cefdinir for 2 more days.
Stop Olmersartan for now.
Hold Cardizem until further directed by your PCP (hold due to bradycardia)
Prescriptions:
New
cyanocobalamin (vitamin B-12) 1,000 mcg Tablet
1,000 mcg PO DAILY Qty: 30 0RF
Continued
fluoxetine 40 mg Capsule
40 mg PO DAILY
clonazepam [Klonopin] 1 mg Tablet
1 mg PO TID
omeprazole 40 mg Capsule,Delayed Release(Dr/Ec)
40 mg PO DAILY
Rx Instructions:
give 30 mins before morning meal
quetiapine 100 mg Tablet
100 mg PO HS
ferrous sulfate 325 mg (65 mg iron) Tablet
325 mg PO BID
gabapentin 300 mg Capsule
300 mg PO BID
rosuvastatin 5 mg Tablet
5 mg PO QPM
cholecalciferol (vitamin D3) [Vitamin D3] 50 mcg (2,000 unit) Tablet
50 mcg PO DAILY
hydroxyzine pamoate 25 mg Capsule
25 mg PO DAILY
acetaminophen [Tylenol] 325 mg Tablet
325 mg PO Q4H PRN (Reason: pain)
Rx Instructions:
alternate with ibuprofen
fluticasone propionate 50 mcg/actuation [place],Suspension
2 spray INTRANASAL DAILY
loperamide 2 mg capsule
2 mg PO Q8 PRN (Reason: diarrhea)
Rx Instructions:
takes Q6-8hrs prn diarrhea filled 01/20/24 x 15 day supply
atenolol 50 mg Tablet
50 mg PO DAILY
Rx Instructions:
per pharmacy dose was reduced in December 2023 by PCP
cefdinir 300 mg capsule
300 mg PO BID 2 Days Qty: 4 0RF
Rx Instructions:
filled rx 01/23/24 #20 capsules
Changed
insulin glargine [Lantus Solostar U-100 Insulin] 100 unit/mL (3 mL) Insulin Pen
10 unit SC HS Qty: 0 0RF
Held
diltiazem HCl 120 mg Capsule,Extended Release 24 Hr
120 mg PO DAILY
Hold Instructions: Resume on 02/05/24.
Discontinued
olmesartan 40 mg Tablet
40 mg PO DAILY
insulin aspart U-100 [Novolog FlexPen U-100 Insulin] 100 unit/mL (3 mL) Insulin Pen
30 unit SC AC
Rx Instructions:
10 UNITS ADDITIONAL WITH ICE CREAM
Discharge Orders:
Discharge Patient (As Directed); Ordered 01/30/24
Ordered By: Jayna Bobby
Discharge Date and Time
Discharge Date/Time: 01/30/24 16:18
Print Language: [id number]
== END 2024-01-30 16:18 | disposition home or self-care (01) | DRG 682 ==
LOC: 3 WEST ACU 10:28
PROVIDERS: Specialist; ADMITTING PHYSICIAN Internal Medicine; ATTENDING PHYSICIAN Internal Medicine; CONSULT PHYSICIAN Internal Medicine; CONSULT PHYSICIAN Psychiatry & Neurology Neurology; EMERGENCY PHYSICIAN Student in an Organized Health Care Education/Training Program; FAMILY PHYSICIAN Family Medicine
DX: N17.9 Acute kidney failure, unspecified (principal); J18.9 Pneumonia, unspecified organism; C7A.8 Other malignant neuroendocrine tumors; C7B.8 Other secondary neuroendocrine tumors; G95.29 Other cord compression; J98.11 Atelectasis; J90 Pleural effusion, not elsewhere classified; E86.0 Dehydration; R29.6 Repeated falls; E11.42 Type 2 diabetes mellitus with diabetic polyneuropathy; R33.9 Retention of urine, unspecified; G47.33 Obstructive sleep apnea (adult) (pediatric); I10 Essential (primary) hypertension; I45.6 Pre-excitation syndrome; N31.2 Flaccid neuropathic bladder, not elsewhere classified; Z79.4 Long term (current) use of insulin
CPT/HCPCS: 71046; 72146; 72148; 74176; 76770; 80048; 80053; 81003; 81015; 81099; 82550; 82570; 82607; 82728; 82746; 82962; 83036; 83735; 84156; 84300; 84443; 84703; 85025; 85027; 85652; 86038; 86140; 86160; 87040; 87070; 87086; 93005; 96360; 97116; 97163; 97167; 97535; 99285

== ENCOUNTER 2024-02-21 07:13 | Day surgery (SDC) | payer MEDICARE, SELFPAY ==
[2024-02-21] VITALS (8 sets, daily range): BP systolic 143–177; BP diastolic 71–86; BMI 33.6
[2024-02-21 07:07] LABS: Glucose - Point of Care 170 mg/dl (70-99)
[2024-02-21 09:26] LABS: Glucose - Point of Care 151 mg/dl (70-99)
== END 2024-02-21 10:35 | disposition home or self-care (01) ==
LOC: GI 07:13
PROVIDERS: ATTENDING PHYSICIAN Internal Medicine Gastroenterology
DX: K31.7 Polyp of stomach and duodenum (principal); K31.89 Other diseases of stomach and duodenum; K80.20 Calculus of gallbladder without cholecystitis without obstruction; K86.9 Disease of pancreas, unspecified; R59.0 Localized enlarged lymph nodes; Z79.899 Other long term (current) drug therapy
CPT/HCPCS: 43259; 43251; 88305; 82962

== ENCOUNTER 2024-03-09 07:55 | Day surgery (SDC) | payer OTHER, SELFPAY ==
[2024-03-09] VITALS (9 sets, daily range): BP systolic 135–170; BP diastolic 59–92; BMI 34.1
[2024-03-09 09:46] LABS: Glucose - Point of Care 160 mg/dl (70-99)
[2024-03-09] MEDS: NORMOSOL-R 1000 IV (09:46)
[2024-03-09 12:46] LABS: Glucose - Point of Care 148 mg/dl (70-99)
== END 2024-03-09 14:18 | disposition home or self-care (01) ==
LOC: SDS 07:55
PROVIDERS: ATTENDING PHYSICIAN Otolaryngology
DX: K11.8 Other diseases of salivary glands (principal); R59.0 Localized enlarged lymph nodes
CPT/HCPCS: 21556; 88305; 82962

== ENCOUNTER → 2024-09-11 07:42 | Outpatient (REF) | payer OTHER, SELFPAY | LOC: PET 07:42 | PROVIDERS: ATTENDING PHYSICIAN Internal Medicine Hematology & Oncology | DX: C7A.092 Malignant carcinoid tumor of the stomach (principal) | CPT/HCPCS: 78815 ==

== ENCOUNTER 2025-04-27 09:40 | Emergency (ER) | payer MEDICARE, OTHER, SELFPAY ==
[2025-04-27 09:43] VITALS: BP 151/82
[2025-04-27 10:22] LABS: Hematocrit 38.6 % (37.0-47.0); Hemoglobin 13.6 g/dL (12.0-16.0); Mean Corp Hgb Conc. 35.2 g/dL (33.0-37.0); Mean Corpuscular Volume 92.6 fL (81.0-99.0); Nucleated Red Blood Cells % 0 %; Red Cell Dist. Width 13.2 % (11.5-14.5)
[2025-04-27 10:35] LABS: ALT (SGPT) 36 U/L (0-35); AST (SGOT) 47 U/L (14-36); Albumin 4.3 g/dl (3.5-5.0); Alkaline Phosphatase 106 U/L (38-126); Blood Urea Nitrogen 12 mg/dl (7-17); Calcium 9.2 mg/dl (8.4-10.2); Carbon Dioxide 23 mmol/L (22-30); Chloride 104 mmol/L (98-107); Glucose 318 mg/dl (70-99); Potassium 4.1 mmol/L (3.5-5.1); Sodium 136 mmol/L (135-145); Total Protein 7.7 g/dl (6.3-8.2); eGFR > 60.00
[2025-04-27 10:59] LABS: Platelet Count 138 10^3/uL (130-400)
[2025-04-27 11:26] VITALS: BMI 36.6
[2025-04-27 11:29] VITALS: BP 156/74
[2025-04-27] MEDS: TYLENOL 650 MG PO (11:46)
--- NOTE | 2025-04-27 12:12 | ED.GENMED ---
History of Present Illness
General
Chief Complaint: Swelling
Source: patient and family (Patient's mother at bedside)
Exam Limitations: developmental stage
Time Seen by Provider: 04/27/25 11:19
Nursing documentation reviewed up to this point in time: agreed with
History of Present Illness
History of Present Illness:
Patient is a 50-year-old female who presents to the emergency department with mother for evaluation of bilateral atraumatic ankle swelling. Patient suffers from developmental delays and resides in an assisted living community. Patient's mother
states that she has not seen her daughter very recently however when she went over yesterday noticed that her ankles were both swollen, right side > left side. Patient states that she has been noticing this over the past 2 weeks however her
daughter is concerned that it may have been occurring longer than this.
Patient denies any pain associated swelling or known injury. She is having no difficulties weightbearing. She denies any fever, chills, chest pain, or shortness of breath. She denies any numbness/tingling in bilateral ankles.
Patient's mother does state that she spends a lot of time in a seated position in a chair and does not get up and ambulate very frequently.
There was concern for a potential blood clot prompting transport to the emergency department.
Past History
Past History
ED Past Medical History: GERD, HTN, Psychiatric (Anxiety, depression, OCD) and Other (sleep apneawears bipap)
ED Past Surgical History: Other (Surgery for the left eye muscle weakness)
Social History
Tobacco: Non-smoker
Alcohol: None
Drug: None
Personal: Single
Living: with family
Employment: Disabled
Family History
Family History: Other (No significant)
Review of Systems
Review of Systems
Allergies reviewed?: Yes
All Other Systems: ROS reviewed and negative except as documented in HPI and ROS
Phy Exam
Physical Exam
Physical Exam:
Vitals: Hypertensive, otherwise vital signs stable. Afebrile
General: Patient is well appearing, no acute distress
Skin: Warm and dry, no rashes or lesions. Erythema of face and chest (which apparently is baseline).
Head: Normocephalic, atraumatic
Eyes: Sclera nonicteric.
Throat: Protecting airway
Neck: Normal ROM, no cervical spine tenderness, no meningismus
Cardiac: Regular rate and rhythm, no murmurs.
Pulm: Normal respiratory effort, no wheezes, rales, rhonchi heard on exam
Abdomen: No abdominal tenderness.
Extremities: Nonpitting edema of bilateral lower extremities from foot to ankle. Small area of erythema and warmth of right medial calf. Full range of motion of bilateral ankles without pain. No effusion of ankles or erythema. 2+ palpable PT
pulses with normal sensation and capillary refill.
Neuro: AAOx3. No focal deficits.
Psychiatric: Normal affect.
Scores
Heart Failure Risk
Heart Failure Risk Score: Not Applicable
Course
Orders/Labs/Results
Orders:
Orders
04/27/25 09:52
Complete Blood Count/With Diff Urgent
Comprehensive Metabolic Panel Urgent
Pro-BNP [NT-proBNP] Urgent
04/27/25 11:37
Acetaminophen [Tylenol] 650 mg PO NOW STA
Legs, Bilateral US [US Periph Venous LOWER Ext Len] Urgent
Comment:
Reason For Exam: b/l lower extremity swelling
04/27/25 13:03
Cephalexin Monohydrate [Keflex] 500 mg PO NOW STA
Abnormal Lab Results
04/27/25
09:52
RBC 4.17 L 10^6/uL
(4.20-5.40)
MCH 32.6 H pg
(27.0-31.0)
Immature Gran % 0.6 H %
(0-0.5)
Creatinine 0.5 L mg/dL
(0.6-1.0)
Glucose 318 H mg/dl
(70-99)
AST 47 H U/L
(14-36)
ALT 36 H U/L
(0-35)
04/27/25 09:52
04/27/25 09:52
Vital Signs
Initial and Last Documented VS:
Initial Vital Signs
Temp Pulse Resp BP Pulse Ox
98.2 F 73 18 151/82 100
04/27/25 09:43 04/27/25 09:43 04/27/25 09:43 04/27/25 09:43 04/27/25 09:43
Last Documented Vital Signs
Temp Pulse Resp BP Pulse Ox
98.2 F 76 16 146/75 99
04/27/25 13:21 04/27/25 13:21 04/27/25 13:21 04/27/25 13:21 04/27/25 13:21
MDM/Problems Addressed
Differential Diagnosis Includes:
Not limited to: Dependent edema, DVT, inflammatory arthritis, venous insufficiency, etc.
MDM/Problems Addressed:
50-year-old female with history as documented presenting with bilateral lower extremity swelling gradually worsening over the past 1� 2 weeks. No associated fever or pain. No difficulties or pain with weight-bearing. No known trauma.
Vitals and physical exam as above
There is nonpitting edema of bilateral lower extremities right > left. No erythema of ankles bilaterally without any limitations in range of motion. B/l LE neurovascularly intact.
Labs obtained prior to evaluation significant for hyperglycemia. Patient�s mom states this has been ongoing and she is currently undergoing some adjustments with her diet/insulin regimen. Otherwise no clinically significant abnormalities. BNP
without suggestion of heart failure.
Differential as above. Will obtain bilateral LE US to r/o blood clots and reassess after above.
Update: ultrasound without evidence of DVT bilaterally. Overall impression is likely dependent edema as patient does spend a lot of time seated in a chair with legs in a dependent position. Patient has excellent pulses without concern for arterial
issue. No evidence of heart failure today. Do not suspect septic arthritis.
There is one area of minimal erythema and warmth of right medial calf . In light of this � will treat with course of antibiotics for possible mild cellulitis. Stable for discharge home with continued primary care follow up. Advised compression
stockings, elevation. Strict return precautions discussed.
Chronic conditions affecting care:
Hypertension, insulin-dependent diabetes
Acute Exacerbation and/or Progression of Chronic Illness:
Acutely hypertensive, acute hyperglycemia
*Radiology
Radiology exam reviewed: radiology read reviewed
*Pulse Oximetry
SaO2: 99
Oxygen Mode of Delivery: Room air
Patient hypoxic: no
*EKG
Interpreted by ED Provider?: NA
*Tool Repairer Interpretation
Rate: Tool Repairer- N/A
*Critical Care Note
Total Time (30-74mins, 75-104mins- exclusive of procedures): Not Applicable
ED Attending Note
-
Portions of this chart may have been created with voice recognition software.� Occasional wrong word or��sound alike� substitutions may have occurred due to the inherent limitations of voice recognition software.
Discharge Plan
Departure
Patient Disposition: Home (Routine Discharge)
Date of Disposition: 04/27/25
Time of Disposition: 13:03
Patient with high blood pressure during this ER visit?: Yes
Condition: Good
Discharge Problem:
Cellulitis of right lower extremity, Swelling of both lower extremities
Instructions: Dependent Edema (DC), Cellulitis (skin infection) in adults - ED (DC)
Prescriptions:
New
cephalexin 500 mg capsule
500 mg PO QID 7 Days Qty: 28 0RF
No Action
fluoxetine 40 mg Capsule
40 mg PO DAILY
clonazepam [Klonopin] 1 mg Tablet
1 mg PO TID
omeprazole 40 mg Capsule,Delayed Release(Dr/Ec)
40 mg PO DAILY
Rx Instructions:
give 30 mins before morning meal
quetiapine 100 mg Tablet
100 mg PO HS
ferrous sulfate 325 mg (65 mg iron) Tablet
325 mg PO BID
gabapentin 300 mg Capsule
300 mg PO BID
rosuvastatin 5 mg Tablet
5 mg PO QPM
cholecalciferol (vitamin D3) [Vitamin D3] 50 mcg (2,000 unit) Tablet
50 mcg PO DAILY
hydroxyzine pamoate 25 mg Capsule
25 mg PO DAILY
acetaminophen [Tylenol] 325 mg Tablet
325 mg PO Q4H PRN (Reason: pain)
Rx Instructions:
alternate with ibuprofen
famotidine 40 mg Tablet
40 mg PO HS
insulin aspart U-100 [Novolog FlexPen U-100 Insulin] 100 unit/mL (3 mL) Insulin Pen
0 unit SC TID
Rx Instructions:
as directed, last 10 units at 0700 03/09/24
fenofibrate nanocrystallized [Tricor] 145 mg Tablet
145 mg PO DAILY
fluticasone propionate 50 mcg/actuation [facility],Suspension
2 spray INTRANASAL DAILY
atenolol 50 mg Tablet
50 mg PO DAILY
Rx Instructions:
per pharmacy dose was reduced in December 2023 by PCP
insulin glargine [Lantus Solostar U-100 Insulin] 100 unit/mL (3 mL) Insulin Pen
10 unit SC HS Qty: 0 0RF
diltiazem HCl 120 mg Capsule,Extended Release 24 Hr
120 mg PO DAILY
Patient Comments:
unsure if she took this today
Referrals:
Ginny Li PA-C [Family Provider, Family Practice] - Follow up in 2-3 days
Activity Restrictions/Additional Instructions:
RETURN TO THE EMERGENCY DEPARTMENT ANY FEVERS, WORSENING PAIN OR SWELLING IN LOWER EXTREMITIES, VOMITING, SIGNIFICANT REDNESS OF LOWER EXTREMITIES, CHEST PAIN OR SHORTNESS OF BREATH, OR ANY OTHER CONCERNS
- As discussed�your ultrasound showed no evidence of blood clots of your lower extremities. Your blood glucose level was elevated today at 318. Please review this with your primary care doctor to consider possible adjustments in your insulin
regimen.
- A prescription for antibiotics has been sent to your pharmacy to cover for possible cellulitis of your right lower leg. Please take this 4 times a day for the next week.
- I do suspect that there is also component of dependent edema. Try to elevate your legs and you can wear compression stockings.
- Follow-up with primary care in a few days for further evaluation/management to ensure that your symptoms are improving
Monitor your symptoms closely and return to the emergency department with any acute worsening/new symptoms or any other concerns
Interventions
Interventions:
*Risk Screen - Suicide Last Done: 04/27/25 09:43
*General Assessment Last Done: 04/27/25 09:43
*Neglect/Abuse Screening Last Done: 04/27/25 11:27
*ED- Fall Risk Assessment Last Done: 04/27/25 11:27
*ED COVID-19 Vaccine History Last Done: 04/27/25 11:27
*Nursing Disposition Last Done: 04/27/25 13:22
ED- Cardiac Assessment Last Done: 04/27/25 11:32
ED- Pulmonary Assessment Last Done: 04/27/25 11:32
ED-Skin Assessment Last Done: 04/27/25 11:32
Discharge Date and Time
Discharge Date/Time: 04/27/25 13:22
Print Language: THAI
[2025-04-27] MEDS: KEFLEX 500 MG PO (13:13)
[2025-04-27 13:21] VITALS: BP 146/75
== END 2025-04-27 13:22 | disposition home or self-care (01) ==
LOC: EMR 09:40
PROVIDERS: EMERGENCY PHYSICIAN Emergency Medicine; FAMILY PHYSICIAN Physician Assistant Medical
DX: L03.115 Cellulitis of right lower limb (principal); R22.43 Localized swelling, mass and lump, lower limb, bilateral; I10 Essential (primary) hypertension; E11.65 Type 2 diabetes mellitus with hyperglycemia; Z79.4 Long term (current) use of insulin
CPT/HCPCS: 99284; 80053; 83880; 85025; 93970

== ENCOUNTER → 2025-08-18 11:00 | Outpatient (REF) | payer MEDICARE, OTHER, SELFPAY | LOC: REG 11:00 | PROVIDERS: ATTENDING PHYSICIAN Internal Medicine Gastroenterology; FAMILY PHYSICIAN Physician Assistant Medical | DX: R19.7 Diarrhea, unspecified (principal) | CPT/HCPCS: 81050; 83497 ==